=== PATIENT | female | born 1945 | race Caucasian/White ===

== ENCOUNTER → 2018-03-13 | Outpatient (CLI) | payer MEDICARE ==
[2018-03-13 15:38] LABS: POTASSIUM 3.1 mmol/L (3.5-5.1)
== END ==
LOC: M.LAB 15:08
PROVIDERS: Student in an Organized Health Care Education/Training Program
DX: Z01.812 Encounter for preprocedural laboratory examination (principal); E11.9 Type 2 diabetes mellitus without complications

== ENCOUNTER → 2018-11-01 | Outpatient (CLI) | payer MEDICARE | LOC: M.NUC 07:00 | DX: K31.84 Gastroparesis (principal); R10.9 Unspecified abdominal pain ==

== ENCOUNTER → 2018-11-13 | Day surgery (SDC) | payer MEDICARE ==
[~2018-11-13] MED LIST: ASPIR 8181 MG PO; COLACE100 MG PO; FLONASE 0.05%50 MCG NASAL; HYZAAR 100-12.1 EACH PO; NORCO 5-325 TA1 EACH PO; NOVOLIN N100 UNIT/1 SUBQ; POTASSIUM99 MG PO; TOPROL XL100 MG PO; VERAPAMIL ER100 MG PO; VITAMIN D32000 UNI1 PO
[2018-11-13 08:03] LABS: HEMATOCRIT 43.1 % (37.0-47.0); HEMOGLOBIN 14.4 gm/dL (12.0-15.0); MCH 27.2 pg (26.0-34.0); MCHC 33.5 g/dL (28.0-37.0); MCV 81.3 fL (80.0-100.0); MPV 8.8 fl. (7.2-11.1); RBC 5.3 mil/uL (4.20-5.00); RDW-CV 14.5 % (10.5-14.5); WBC 8.8 thou/uL (4.0-11.0)
[2018-11-13 08:14] LABS: CALCIUM 9.1 mg/dL (8.5-10.1); CREATININE 0.9 mg/dL (0.6-1.3); POTASSIUM 3.5 mmol/L (3.5-5.1)
--- NOTE | 2018-11-13 13:56 | EKG ---
[place] [address] ELECTROCARDIOGRAM REPORT Name: YOVANA CORTEZ Room: [facility]#: [id number] Admission: 11/13/18 Attend Phys: Veronica Askew DO Discharge: Date of : 47 Report #: [id number] THIS REPORT FOR: //name// [facility] Test Date: 2018-11-13 Test Time: 08:42:42 Pat Name: YOVANA CORTEZ Department: Room: Gender: F Nursery Worker: : 1945 Requested By: Veronica Askew Order Number: [id number] Ansley MD: Sae Almaguer Measurements Intervals [place] Rate: 57 P: 24 MT: 178 QRS: -24 QRSD: 79 T: 52 QT: 473 QTc: 461 Interpretive Statements Sinus bradycardia nonspecific t wave changes Inferior infarct, old No previous ECG available for comparison Electronically Signed On 11-13-2018 13:56:02 CDT by Sae Almaguer [email or web address] <ELECTRONICALLY SIGNED> By: Sae Almaguer MD, [facility] 11/13/18 1356 0842 0842 Sae Almaguer MD, FACC /EPI
--- NOTE | 2018-11-14 09:58 | OP ---
[address] [address] OPERATIVE REPORT Name: YOVANA CORTEZ Room: [facility].#: [id number] Admission: 11/13/18 Attend Phys: Veronica Askew DO Discharge: Date of : 47 Report #: [id number] THIS REPORT FOR: //name// CC: NIC Askew Physician staff DATE OF SERVICE: 11/13/2018 PREPROCEDURE DIAGNOSIS: Chronic intermittent left upper quadrant abdominal pain. POSTOPERATIVE DIAGNOSES: Chronic intermittent left upper quadrant abdominal pain with findings of adhesions in the right lower quadrant, right upper quadrant and just below the umbilicus. We also identified a retained foreign body in the form of a clip, which was stuck in the anterior abdominal wall in the right upper quadrant. There are also findings of a redundant transverse colon. SURGEON: Veronica Askew DO COSURGEON: Jake Ortiz, PGY-2 PROCEDURE PERFORMED: Diagnostic laparoscopy and lysis of adhesions, less than 30 minutes and removal of the foreign body. ANESTHESIA: General endotracheal and local. ESTIMATED BLOOD LOSS: 2. DRAINS: None. SPECIMENS: Clip which was not sent for pathology. COMPLICATIONS: None. DISPOSITION: PACU to home. CONDITION: Stable. HISTORY OF PRESENT ILLNESS: The patient is a very pleasant 73-year-old female who presented to my office with a complaint of chronic intermittent left upper quadrant abdominal pain. She had had a full workup with GI including EGD, colonoscopy, gastric emptying studies and CAT scans. Fortunately, none of these had any significant findings and she continued to have the pain. She has had multiple surgeries including lower abdominal laparotomy, a gallbladder and an [facility] [address] [place] [address] OPERATIVE REPORT Name: YOVANA CORTEZ SYBILHERIBERTO Room: [facility].#: [id number] Admission: 11/13/18 Attend Phys: Veronica Askew DO Discharge: Date of : 47 Report #: [id number] appendectomy and is concerned about the presence of possible adhesions. Physical exam was otherwise benign. She was then consented for diagnostic laparoscopy, possible lysis of adhesions, possible bowel resection. Risks discussed included bleeding, infection, pain, scar formation, hernia at the incision sites, need for further surgery and risks of general anesthesia. The patient understood these risks and elected to proceed. DESCRIPTION OF PROCEDURE: The patient was brought to the operating room. She was laid supine on the operating room table. SCDs were placed on bilateral lower extremities. Ancef was given in the perioperative period. General endotracheal anesthesia was induced by Anesthesia without difficulty. Abdomen was prepped and draped in standard sterile fashion. Timeout was performed to verify patient and procedure. A 10 mL of 0.5% Marcaine were injected in the supraumbilical area. Incision was made with an 11 blade. Cautery was used for hemostasis. S retractors were used to visualize the fascia. Fascia was grasped and elevated between 2 Kochers. Fascia was incised using cautery. Peritoneum was then tented between 2 Penny clamps and was incised using an 11 blade. Finger was gently introduced into the abdomen to assure that there were no layla-incisional adhesions, none were identified. Two stitches of 0 Vicryl were placed on the fascia. Momo trocar was introduced and secured with 0 Vicryl stitches. Abdomen was insufflated. Camera was introduced and a brief anterior abdominal exploration was undertaken with findings of multiple areas of adhesions including in the right lower quadrant, right upper quadrant and just below the umbilicus. In addition, there was a finding of a superredundant transverse colon. Two 5 mm trocars were then introduced, one in the left lower quadrant and one in the lower midline. We then proceeded with lysis of adhesions utilizing cautery. Care was taken to avoid any underlying structures. All of the adhesions in the right lower quadrant, right upper quadrant and at the umbilicus were all taken down. No signs of any hernia were identified. Once the adhesions in the right upper quadrant were taken down, we then identified what appeared to be a retained clip, most likely from previous cholecystectomy was identified. The clip was embedded in the anterior abdominal wall. It was gently grasped using a Jaquan and was able to be removed through our 5 mm trocar. A full diagnostic laparoscopy was then completed. Liver appeared to be healthy. The stomach did not appear to be overly distended. There were no masses identified. The colon was visualized from the cecum to the sigmoid and again was found to be without disease. Transverse colon was very redundant. Small bowel was run from the ligament of Treitz to the terminal ileum and was without adhesions, masses or lesions. Trocars were then removed under direct visualization. There was no bleeding noted from the peritoneum. Abdomen was then completely desufflated. Momo trocar was removed. Kochers were then placed on the fascia of our supraumbilical port. Previously placed 0 Vicryl stitch was removed and 2-0 Vicryl stitches in a xuieoa-xt-kixow fashion were placed with excellent approximation of the fascia. An additional 10 mL of 0.5% Marcaine were injected in the fascia. All wounds were then closed with 4-0 Monocryl. A total of 30 mL of 0.5% Marcaine were used to anesthetize the [address] [address] OPERATIVE REPORT Name: DANAYOVANA Room: [facility] MAnn Marie#: [id number] Admission: 11/13/18 Attend Phys: Veronica Askew DO Discharge: Date of : 47 Report #: [id number] wounds. Wounds were then cleansed and covered with Mastisol, Steri-Strips, 4 x 4's, and a Tegaderm. The patient was then allowed to awaken from anesthesia, was extubated and transported to the recovery room with no further difficulties. Counts were correct at the conclusion of the case. <ELECTRONICALLY SIGNED> By: Veronica Askew DO 11/14/18 0958 1046 1408Chprincess Askew DO /nt
== END | disposition home or self-care (01) ==
LOC: M.SUR 07:35
PROVIDERS: Surgery
DX: S30.851A Superficial foreign body of abdominal wall, initial encounter (principal); X58.XXXA Exposure to other specified factors, initial encounter; Y93.9 Activity, unspecified; Y92.89 Other specified places as the place of occurrence of the external cause; Y99.9 Unspecified external cause status; R10.12 Left upper quadrant pain; Z98.890 Other specified postprocedural states

== ENCOUNTER 2019-11-05 04:23 | Inpatient (IN) | payer MEDICARE ==
[~2019-11-05] VITALS: Ht 154.9 cm; Wt 74.8 kg
--- NOTE | ~2019-11-05 | CON ---
[address] [address] CONSULTATION Name: YOVANA CORTEZ Room: [address] IN M.R.#: [id number] Admission: 11/05/19 Attend Phys: Jazlyn Valladares Discharge: 11/07/19 Date of : 47 Report #: [id number] THIS REPORT FOR: //name// cc: Precious Campbell Carrie M. DO ~ THIS REPORT FOR: //name// CC: Precoius Monsivais DATE OF SERVICE: 11/05/2019 HISTORY OF PRESENT ILLNESS: This is a pleasant 74-year-old female with past medical history significant for hypertension, hyperlipidemia, type 2 diabetes, coronary artery disease, asthma, and COPD, who presents to the hospital with abdominal pain. The patient reports that she usually has one soft formed bowel movement per day, a few days back, she began having loose stools. Due to this, the patient took 1 Imodium on 2 consecutive days and since then she has had no bowel movement. This has led to significant abdominal pain. The patient reports the pain is located all over the abdomen. It is poorly localized. She also reports gradual loss of appetite over the last few weeks along with a 20-pound weight loss. The patient's pain was most severe during the admission, it has resolved since. The patient received a glycerin suppository yesterday and this has led to a large bowel movement with reduction in pain. She denies any hematochezia. The patient denies any hematemesis. PAST MEDICAL HISTORY: Hypertension, hyperlipidemia, type 2 diabetes, and NSTEMI with stent placed recently. PAST SURGICAL HISTORY: The patient has a history of wrist surgery in 1974, hernia repair in 2019, prior history of cholecystectomy, tonsillectomy and hysterectomy. SOCIAL HISTORY: The patient denies smoking, alcohol or recreational drug use. FAMILY HISTORY: There is no history of colon cancer or Scott related neoplasia. REVIEW OF SYSTEMS: A comprehensive 10-point review of systems is negative except for what is mentioned in the HPI. PHYSICAL EXAMINATION: VITAL SIGNS: Temperature 36.7, pulse rate 60, respirations 20, blood pressure 200/60, pulse ox 100% on room air. GENERAL: The patient is alert, awake, oriented x 3. HEENT: Pupils are equal, round, reactive to light and accommodation. Mucous membranes are moist. [place] [address] CONSULTATION Name: YOVANA CORTEZ Room: [address]#: [id number] Admission: 11/05/19 Attend Phys: Jazlyn Valladares Discharge: 11/07/19 Date of : 47 Report #: [id number] LUNGS: Clear to auscultation bilaterally. CARDIOVASCULAR: Rate and rhythm regular, S1, S2 present. ABDOMEN: Soft. There is no distention, guarding or rigidity. EXTREMITIES: Warm, well perfused. There is no edema. SKIN: Warm and dry. LABORATORY DATA: Hemoglobin 14.5, hematocrit 40.2, platelet count 293 and WBC count 13.1. Sodium 130, creatinine 1.1. IMAGING: Abdomen and pelvis CT performed and demonstrates surgical changes of cholecystectomy with moderate post-cholecystectomy bile duct enlargement, no evidence of high-grade bile duct obstruction, right kidney is smaller than left, stomach normal, small bowel loops normal, distal small bowel fluid filled and minimal ileus, no significant extension or obstruction. No significant wall thickening. Appendix is surgically absent. Moderate amount of stool present in the colon without fecal impaction or obstruction, sigmoid colon and descending are mildly tortuous, distal rectum, there is mild wall thickening with edema could be consistent with proctitis. Clinical correlation will be useful. ASSESSMENT AND PLAN: A pleasant 74-year-old female with history of hypertension, diabetes, hyperlipidemia, coronary artery disease is presenting for evaluation of abdominal pain, constipation and weight loss. I suspect her constipation is related to her use of Imodium. I would recommend giving her an enema today and placing her on MiraLax 17 grams p.o. daily. 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 The patient will need a CT angiography to define this further. We will treat the patient's constipation and if this does not get better, we will proceed with mesenteric angiography. Thank you for this consultation. By: 1849 [id number] Carrasco MD /nt
[~2019-11-05 04:23] MED LIST changes: +ASA81BEC PO; +ATROVENT HFA14 GM INH; +BRILINTA90 MG PO; +CARVEDILOL25 MG PO; +LOSARTAN-HCTZ1 EAC2 PO; +MEDROLDOSEPACK PO; +PROAIR HFA8.5 GM INH; +SPIRONOLACTONE25 MG PO; +SUPER THERAVIT1 EACH PO; +TESSALON PERLE100 MG PO; +VERAPAMIL E.R240 M1 PO; +VERAPAMIL ER120 MG PO; +ZETIA10 MG PO
[2019-11-05 04:32] VITALS: BP 207/60
[2019-11-05 04:46] LABS: URINE BILIRUBIN NEGATIVE (Negative); URINE BLOOD NEGATIVE (Negative); URINE CLARITY CLEAR; URINE COLOR YELLOW; URINE GLUCOSE-RANDOM 1+ (Negative); URINE KETONES NEGATIVE (Negative); URINE LEUKOCYTES-REFLEX NEGATIVE (Negative); URINE NITRITE-REFLEX NEGATIVE (Negative); URINE PROTEIN NEGATIVE (Negative); URINE SPECIFIC GRAVITY 1.015 (1.005-1.030); URINE UROBILINOGEN 0.2 E.U./dl (0.2-1.0)
[2019-11-05 04:55] LABS: ABSOLUTE BASOPHILS 0.1 thou/uL (0.0-0.2); ABSOLUTE EOSINOPHILS 0.2 thou/uL (0.0-0.7); ABSOLUTE MONOCYTES 1.3 thou/uL (0.0-1.2); ABSOLUTE NEUTROPHILS 10.4 thou/uL (1.6-8.1); BASOPHILS 0.8 %; EOSINOPHILS 1.8 %; HEMATOCRIT 40.2 % (37.0-47.0); HEMOGLOBIN 14.5 gm/dL (12.0-15.0); LYMPHOCYTES 7.9 %; MCH 29.9 pg (26.0-34.0); MCV 83.2 fL (80.0-100.0); MONOCYTES 9.9 %; NUCLEATED RBCS 0 /100WBC; PLATELET COUNT* 293 thou/uL (150-400); POLYS 79.6 %; RBC 4.84 mil/uL (4.20-5.00); WBC 13.1 thou/uL (4.0-11.0)
[2019-11-05 05:04] LABS: CALCIUM 8.8 mg/dL (8.5-10.1); CREATININE 1.1 mg/dL (0.6-1.3); POTASSIUM 3.5 mmol/L (3.5-5.1)
[2019-11-05 05:08] LABS: ALBUMIN 3.5 g/dL (3.4-5.0); TOTAL BILIRUBIN 0.9 mg/dL (<0.1-1.0); TOTAL PROTEIN 7.4 g/dL (6.4-8.2)
[2019-11-05 09:29] VITALS: BP 159/40
--- NOTE | 2019-11-05 10:34 | EKG ---
[place] [address] ELECTROCARDIOGRAM REPORT Name: YOVANA CORTEZ Room: [address] ADM IN .R.#: [id number] Admission: 11/05/19 Attend Phys: Shemar Monsivais Discharge: Date of : 47 Date of Service: 11/05/19 0435 Report #: [id number] THIS REPORT FOR: //name// [facility] ED Test Date: 2019-11-05 Test Time: 04:35:52 Pat Name: YOVANA CORTEZ Department: Room: [facility] Gender: F Qa Engineer: : 1945 Requested By: Laura Casarez Order Number: [id number] MD: Sae Almaguer Measurements Intervals [place] Rate: 60 P: 0 [place]: 62 QRS: -13 QRSD: 79 T: 97 QT: 376 QTc: 376 Interpretive Statements Sinus rhythm Abnormal R-wave progression, early transition Inferior infarct, old Compared to ECG 10/20/2019 02:59:05 First degree AV block no longer present Myocardial infarct finding still present Electronically Signed On 11-05-2019 10:32:53 OUTREACH MANAGER by Sae Almaguer [email or web address] <ELECTRONICALLY SIGNED> By: Sae Almaguer MD, FAC 11/05/19 1032 0435 0435 Sae Almaguer MD, FAC /EPI
[2019-11-05 11:46] VITALS: BP 162/47
[2019-11-05 16:00] VITALS: BP 158/42
[2019-11-05 20:00] VITALS: BP 139/47
[2019-11-06] VITALS (8 sets, daily range): BP systolic 117–170; BP diastolic 35–76
[2019-11-06 04:34] LABS: HEMATOCRIT 32.3 % (37.0-47.0); MCH 29.5 pg (26.0-34.0); MCHC 34.6 g/dL (28.0-37.0); MCV 85.2 fL (80.0-100.0); MPV 8.7 fl. (7.2-11.1); RBC 3.79 mil/uL (4.20-5.00); RDW-CV 13.1 % (10.5-14.5); WBC 22.6 thou/uL (4.0-11.0)
[2019-11-06 04:54] LABS: CALCIUM 7.6 mg/dL (8.5-10.1); CREATININE 1.1 mg/dL (0.6-1.3); MAGNESIUM 1.3 mg/dL (1.8-2.4); PHOSPHORUS* 3.2 mg/dL (2.5-4.9); POTASSIUM 3.1 mmol/L (3.5-5.1)
[2019-11-06 05:03] LABS: HEMOGLOBIN 11.2 gm/dL (12.0-15.0)
--- NOTE | 2019-11-06 09:39 | CON ---
[address] [address] CONSULTATION Name: YOVANA CORTEZ Room: [address] IN M.R.#: [id number] Admission: 11/05/19 Attend Phys: Jazlyn Valladares Discharge: Date of : 47 Report #: [id number] THIS REPORT FOR: //name// cc: Precious Campbell Carrie M. DO ~ THIS REPORT FOR: //name// CC: Precious Mcpherson MD [facility] Shemar Monsivais DATE OF SERVICE: 11/05/2019 CARDIOLOGY CONSULTATION HISTORY OF PRESENT ILLNESS: The patient is a 74-year-old single white female who I was asked to see in the hospital after she complained of abdominal discomfort. The patient has a long history of diabetes and hypertension. She actually presented here to [facility] on 10/16/2019 with elevated blood pressure and headache. She was seen by my partner, Dr. Isai Mcpherson. Her troponin was borderline elevated. However, she had no history of chest pain, increased shortness of breath, palpitations, syncope. Dr. Mcpherson performed a cardiac catheterization on 10/19/2019 from the right femoral artery. Results showed 90% narrowing in the mid LAD. Circumflex had a 40% stenosis. Right coronary was nondominant. Ventriculogram was normal. She was then given Angiomax and Dr. Mcpherson placed a single drug-eluting stent in the LAD. She tolerated the procedure well. She was started on Brilinta and was discharged. She actually just saw Dr. Mcpherson' nurse practitioner last week. She was taken off of Aldactone. Her blood pressure elevated and her hydrochlorothiazide was increased. Since her discharge, she has had no further chest pain, shortness of breath, palpitations, or syncope. She has been weak. She does not exercise on a regular basis. She did notice dry cough while taking Brilinta. She was doing well until last night. She felt constipated, bloated, had vomiting. She has had no appetite. She came to the Emergency Room and was admitted. PAST MEDICAL HISTORY: She has had previous cholecystectomy, cataract extraction, hysterectomy. MEDICATIONS: Include insulin, hydrochlorothiazide, losartan, carvedilol, and verapamil. She was recently given a prescription for Zetia, which she has not filled. She could not take statins in the past because of muscle aches. She developed a cough on lisinopril. FAMILY HISTORY: Her father had bypass surgery. SOCIAL HISTORY: She is , lives in [place], [place] [address] CONSULTATION Name: YOVANA CORTEZ SYBILHERIBERTO Room: [address] IN M.R.#: [id number] Admission: 11/05/19 Attend Phys: Jazlyn Valladares Discharge: Date of : 47 Report #: [id number] alcohol abuse. REVIEW OF SYSTEMS: She apparently had a TIA in the past affecting her speech. She has a carotid Doppler ordered. No history of liver disease. She has a history of asthma, uses inhaler. No kidney disease. No cancer. No psychiatric illness. No chronic skin condition. No arthritis. PHYSICAL EXAMINATION: GENERAL: Elderly female lying in bed. She appeared in no distress. VITAL SIGNS: She had a blood pressure of 160/60, pulse 60. She is afebrile. HEENT: She was anicteric, conjunctivae pink. Mucous membranes moist. NECK: Veins nondistended. Bilateral carotid bruits were heard. Neck was supple. CHEST: Clear to auscultation. CARDIOVASCULAR: Regular rate and rhythm. ABDOMEN: Soft. EXTREMITIES: Had no edema. Dorsalis pedis pulse 1+ bilaterally. SKIN: Cool and dry. NEUROLOGIC: Nonfocal. RADIOLOGICAL DATA: Her ECG shows a sinus rhythm, nonspecific T-wave changes. Her workup in the Emergency Room last night, she had a portable chest x-ray that showed no acute abnormality. CT scan of the abdomen done last night showed no bile duct obstruction. The rest of the exam showed minimal ileus. LABORATORY DATA: Sodium 130, creatinine 1.1. Troponin 0.08, it was actually 1.16 a month ago. Her white blood cell count 13.1, hemoglobin 14.5. IMPRESSION AND RECOMMENDATIONS: 1. Recent coronary stent. No recent angina. I would continue Brilinta and aspirin. 2. Hypertension. The patient is on a diuretic, ARB, calcium isabel and beta isabel. 3. Hyperlipidemia. The patient cannot tolerate STATIN drugs. 4. Ileus. The patient is currently n.p.o. 5. Carotid bruit. The patient is scheduled for carotid Doppler. <ELECTRONICALLY SIGNED> By: Sae Almaguer MD, FACC 11/06/19 0939 1123 0130Sae Almaguer MD, FACC /nt
[2019-11-07] VITALS: BP 121/40
[2019-11-07 04:21] VITALS: BP 145/39
[2019-11-07 05:13] LABS: ABSOLUTE BASOPHILS 0.1 thou/uL (0.0-0.2); ABSOLUTE EOSINOPHILS 0.3 thou/uL (0.0-0.7); ABSOLUTE LYMPHOCYTES 1.6 thou/uL (0.8-5.3); ABSOLUTE NEUTROPHILS 9.5 thou/uL (1.6-8.1); BASOPHILS 0.6 %; EOSINOPHILS 2.3 %; HEMATOCRIT 30.8 % (37.0-47.0); HEMOGLOBIN 10.7 gm/dL (12.0-15.0); LYMPHOCYTES 12.6 %; MCH 29.5 pg (26.0-34.0); MCHC 34.6 g/dL (28.0-37.0); MCV 85.3 fL (80.0-100.0); MONOCYTES 8.3 %; MPV 7.9 fl. (7.2-11.1); NUCLEATED RBCS 0 /100WBC; PLATELET COUNT* 202 thou/uL (150-400); POLYS 76.2 %; RBC 3.61 mil/uL (4.20-5.00); RDW-CV 13.4 % (10.5-14.5); WBC 12.5 thou/uL (4.0-11.0)
[2019-11-07 05:36] LABS: ALBUMIN 2.4 g/dL (3.4-5.0); CALCIUM 7.9 mg/dL (8.5-10.1); CREATININE 1.2 mg/dL (0.6-1.3); MAGNESIUM 1.9 mg/dL (1.8-2.4); PHOSPHORUS* 1.8 mg/dL (2.5-4.9); POTASSIUM 4.2 mmol/L (3.5-5.1); TOTAL BILIRUBIN 0.4 mg/dL (<0.1-1.0); TOTAL PROTEIN 5.8 g/dL (6.4-8.2)
[2019-11-07 07:30] VITALS: BP 150/52
[2019-11-07] MEDS ORDERED: AUGMENTIN 875-1 EACH PO (11:24)
[2019-11-07] MEDS ORDERED: PROTONIX40 M4 PO (11:24)
[2019-11-07 12:29] VITALS: BP 185/70
[2019-11-07 16:36] VITALS: BP 185/70
== END 2019-11-07 16:53 | disposition home or self-care (01) | DRG 871 ==
LOC: M.ERS 04:23 → M.TBA-ER 06:31 → M.2W 06:31
PROVIDERS: Personal Emergency Response Attendant; Surgery; ADMIT Internal Medicine
DX: A41.9 Sepsis, unspecified organism (principal); E43 Unspecified severe protein-calorie malnutrition; E87.1 Hypo-osmolality and hyponatremia; K56.609 Unspecified intestinal obstruction, unspecified as to partial versus complete obstruction; I77.4 Celiac artery compression syndrome; K62.89 Other specified diseases of anus and rectum; I25.10 Atherosclerotic heart disease of native coronary artery without angina pectoris; J44.9 Chronic obstructive pulmonary disease, unspecified; R65.10 Systemic inflammatory response syndrome (SIRS) of non-infectious origin without acute organ dysfunction; K44.9 Diaphragmatic hernia without obstruction or gangrene; G89.29 Other chronic pain; E87.6 Hypokalemia; E83.42 Hypomagnesemia; R01.1 Cardiac murmur, unspecified; G47.30 Sleep apnea, unspecified; I70.1 Atherosclerosis of renal artery; I65.23 Occlusion and stenosis of bilateral carotid arteries; E78.5 Hyperlipidemia, unspecified; I10 Essential (primary) hypertension; E11.9 Type 2 diabetes mellitus without complications; Z86.12 Personal history of poliomyelitis; Z68.31 Body mass index [BMI] 31.0-31.9, adult; Z95.5 Presence of coronary angioplasty implant and graft; Z90.49 Acquired absence of other specified parts of digestive tract; I25.2 Old myocardial infarction; Z90.710 Acquired absence of both cervix and uterus; Z79.82 Long term (current) use of aspirin; Z79.899 Other long term (current) drug therapy; Z88.5 Allergy status to narcotic agent; Z88.8 Allergy status to other drugs, medicaments and biological substances; Z91.048 Other nonmedicinal substance allergy status; Z91.09 Other allergy status, other than to drugs and biological substances; Z79.4 Long term (current) use of insulin; Z98.49 Cataract extraction status, unspecified eye; Z86.73 Personal history of transient ischemic attack (TIA), and cerebral infarction without residual deficits; Z87.11 Personal history of peptic ulcer disease

== ENCOUNTER 2019-12-03 09:40 | Inpatient (IN) | payer MEDICARE ==
[~2019-12-03] VITALS: Ht 154.9 cm; Wt 85.1 kg
--- NOTE | ~2019-12-03 | CON ---
[address] [place] [address] [address] CONSULTATION Name: YOVANA CORTEZ Room: [address] IN M.R.#: [id number] Admission: 12/03/19 Attend Phys: Freddie Silveira Discharge: Date of : 47 Report #: [id number] THIS REPORT FOR: //name// cc: Precious Campbell Carrie M. DO ~ THIS REPORT FOR: //name// CC: Precious [place] DATE OF SERVICE: 12/05/2019 VASCULAR SURGERY CONSULTATION REQUESTING PHYSICIAN: Freddie [place] MD. REASON FOR CONSULTATION: Peripheral arterial disease. HISTORY OF PRESENT ILLNESS: The patient is well known to us. She is a very pleasant 74-year-old white female. She is a severe vasculopath. We had been seeing her and we were planning on bilateral carotid endarterectomies as well as bilateral lower extremity revascularizations. Unfortunately, she had worsening of her symptoms in the left leg with acute necrosis of her left great toe. She ended up in the ER at [facility] and the vascular surgeons there took her for bilateral common femoral endarterectomies with iliac intervention as well. She was returned to [facility] for rehabilitation. She was brought over to the ER complaining of left foot pain. Both legs appear to be viable at this time. She has some swelling of her left leg. I suspect she likely has reperfusion syndrome. REVIEW OF SYSTEMS: A 12-point review of systems was reviewed and negative as per HPI. PAST MEDICAL HISTORY: Significant for AFib with RVR, bronchitis, diabetes, hyperlipidemia, hypertension. ALLERGIES: Include ADHESIVE TAPE, ADORE INHIBITORS, KEFLEX, CODEINE, ERYTHROMYCIN, LISINOPRIL AND MORPHINE. SURGICAL HISTORY: The patient underwent bilateral femoral endarterectomies with iliac interventions by Dr. Diehl ____ and Dr. Shawn Zayas at [facility] 1 week ago. MEDICATIONS: Include Brilinta, aspirin, metoprolol, losartan, insulin, Atrovent, ProAir, verapamil, benzonatate, [place] [address] CONSULTATION Name: YOVANA CORTEZ Room: [address]#: [id number] Admission: 12/03/19 Attend Phys: Freddie Silveira Discharge: Date of : 47 Report #: [id number] SOCIAL HISTORY: The patient denies drug, alcohol or tobacco use. PHYSICAL EXAMINATION: GENERAL: The patient is in no acute distress. She is alert and oriented. VITAL SIGNS: Afebrile. Vital signs stable. HEENT: Normocephalic, atraumatic. NECK: Supple. HEART: Irregularly irregular. LUNGS: Equal. ABDOMEN: Soft, nontender, nondistended. EXTREMITIES: Bilateral groin incisions are well approximated. No drainage, no signs or symptoms of infection, no erythema. Bilateral legs are pink and warm. There is some swelling of her left leg. I cannot palpate pulses on either side, but they are clearly viable. NEUROLOGIC: Grossly intact. ASSESSMENT: Status post revascularization of bilateral lower extremities by outside surgeon. PLAN: 1. We will check arterial duplex with ABIs to assess the revascularization of her bilateral legs. 2. The patient still needs carotid endarterectomies. We will plan for these once the coronavirus pandemic has run its course, likely 6-8 weeks, sooner should the patient become symptomatic from her carotids. Thank you very much for involving me in the care of this very pleasant patient. Please feel free to call me with any questions or concerns about assessment and plan. By: 1723 [id number] Vaughn MD /nt
[~2019-12-03 09:40] MED LIST changes: +AUGMENTIN 875-1 EACH PO; +PROTONIX40 M4 PO
[2019-12-03 09:42] VITALS: BP 173/80
[2019-12-03] MEDS ORDERED: METOPROLOL SUC100 MG PO (09:49)
[2019-12-03] MEDS ORDERED: TOPROL XL50 MG PO (09:49)
[2019-12-03 10:23] LABS: ABSOLUTE BASOPHILS 0.1 thou/uL (0.0-0.2); ABSOLUTE EOSINOPHILS 0.3 thou/uL (0.0-0.7); ABSOLUTE LYMPHOCYTES 1.1 thou/uL (0.8-5.3); ABSOLUTE MONOCYTES 1.6 thou/uL (0.0-1.2); ABSOLUTE NEUTROPHILS 10.7 thou/uL (1.6-8.1); BASOPHILS 0.8 %; EOSINOPHILS 2.5 %; HEMATOCRIT 32.3 % (37.0-47.0); HEMOGLOBIN 10.9 gm/dL (12.0-15.0); LYMPHOCYTES 7.9 %; MCH 28.9 pg (26.0-34.0); MCHC 33.8 g/dL (28.0-37.0); MCV 85.6 fL (80.0-100.0); MONOCYTES 11.7 %; MPV 7.8 fl. (7.2-11.1); NUCLEATED RBCS 0 /100WBC; PLATELET COUNT* 522 thou/uL (150-400); POLYS 77.1 %; RBC 3.77 mil/uL (4.20-5.00); RDW-CV 13.9 % (10.5-14.5); WBC 13.8 thou/uL (4.0-11.0)
[2019-12-03 10:30] LABS: INR 1.1; PROTIME 10.9 Seconds (9.20-11.50)
[2019-12-03 10:31] LABS: POTASSIUM 3.4 mmol/L (3.5-5.1)
[2019-12-03 10:41] LABS: ALBUMIN 2.3 g/dL (3.4-5.0); MAGNESIUM 1.9 mg/dL (1.8-2.4); TOTAL BILIRUBIN 1.1 mg/dL (<0.1-1.0); TOTAL PROTEIN 6.3 g/dL (6.4-8.2)
--- NOTE | 2019-12-03 11:45 | NUR ---
CARDIZEM DRIP 10ML/HR
[2019-12-03 13:00] VITALS: BP 131/62
[2019-12-03 13:07] VITALS: BP 149/64
[2019-12-03] MEDS ORDERED: VERAPAMIL ER120 MG PO (14:14)
[2019-12-03] MEDS ORDERED: TESSALON PERLE100 M1 PO (14:37)
[2019-12-03] MEDS ORDERED: NON-ASPIRIN325 MG PO (14:38)
[2019-12-03] MEDS ORDERED: PROTONIX40 M4 PO (14:39)
--- NOTE | 2019-12-03 15:17 | EKG ---
[place] [address] ELECTROCARDIOGRAM REPORT Name: DANAYOVANA Room: [address] ADM IN M.R.#: [id number] Admission: 12/03/19 Attend Phys: Freddie rea Sa Discharge: Date of : 47 Date of Service: 12/03/19 0947 Report #: [id number] THIS REPORT FOR: //name// [facility] ED Test Date: 2019-12-03 Test Time: 09:47:45 Pat Name: YOVANA CORTEZ Department: Room: [facility] Gender: F Communications Agent: CCD : 1945 Requested By: Harsh Foley Order Number: [id number] MD: Sae Almaguer Measurements Intervals [place] Rate: 127 P: [place]: QRS: -7 QRSD: 62 T: 31 QT: 388 QTc: 565 Interpretive Statements Atrial fibrillation Borderline T abnormalities, anterior leads Prolonged QT interval Compared to ECG 11/05/2019 04:35:52 Prolonged QT interval now present Sinus rhythm no longer present Electronically Signed On 12-03-2019 15:16:19 CDT by Sae Almaguer [email or web address] <ELECTRONICALLY SIGNED> By: Sae Almaguer MD, [facility] 12/03/19 1516 0947 0947 Sae Almaguer MD, [facility] /EPI
--- NOTE | 2019-12-03 16:39 | NUR ---
assumed pt care report received from nurse pt is aox4. on ra. tracing afib on surveillance monitor. heart rate between 110 and 120. on cardizem drip at 10 cc per hour going through left forearm iv access. pt denies pain. urine sample sent to lab. vss stable. see chart. admission assessment and hx performed at bedside. medication list updated and this was communicated to the hospitalist. cardiology saw pt in room and some changes have been made in the patient's medication. see emar. call light at reach. iv antibiotic administered as ordered. will continue to monitor pt
[2019-12-03 16:46] LABS: URINE BILIRUBIN NEGATIVE (Negative); URINE BLOOD 1+ (Negative); URINE CLARITY CLEAR; URINE COLOR YELLOW; URINE GLUCOSE-RANDOM NEGATIVE (Negative); URINE KETONES 1+ (Negative); URINE LEUKOCYTES-REFLEX NEGATIVE (Negative); URINE NITRITE-REFLEX NEGATIVE (Negative); URINE PROTEIN TRACE (Negative); URINE UROBILINOGEN 0.2 E.U./dl (0.2-1.0)
[2019-12-03 16:58] LABS: BACTERIA-REFLEX None Seen /HPF (None Seen); CASTS None Seen /LPF (None Seen); CRYSTALS None Seen /LPF (None Seen); SQUAMOUS 4-10 Moderate /LPF (0-3); URINE RBC 0-2 Rare /HPF (0-2); URINE WBC-REFLEX None Seen /HPF (0-5)
[2019-12-03 17:05] VITALS: BP 137/68
--- NOTE | 2019-12-03 18:27 | NUR ---
HEART RATE DOWN INTHE 90s. REMAINED AFIB ON THE SEARCHLIGHT OPERATOR.
[2019-12-03 20:00] VITALS: BP 150/61
[2019-12-04 04:07] VITALS: BP 177/69
[2019-12-04 04:08] LABS: HEMATOCRIT 32.1 % (37.0-47.0); HEMOGLOBIN 10.8 gm/dL (12.0-15.0); MCHC 33.6 g/dL (28.0-37.0); MCV 86.3 fL (80.0-100.0); MPV 7.9 fl. (7.2-11.1); RBC 3.71 mil/uL (4.20-5.00); RDW-CV 14.2 % (10.5-14.5); WBC 12.7 thou/uL (4.0-11.0)
[2019-12-04 04:42] LABS: ALBUMIN 2.4 g/dL (3.4-5.0); CALCIUM 8.7 mg/dL (8.5-10.1); CREATININE 1.1 mg/dL (0.6-1.3); MAGNESIUM 1.9 mg/dL (1.8-2.4); POTASSIUM 3.7 mmol/L (3.5-5.1); TOTAL BILIRUBIN 1.1 mg/dL (<0.1-1.0); TOTAL PROTEIN 6.3 g/dL (6.4-8.2)
--- NOTE | 2019-12-04 06:50 | NUR ---
ASSUMED PT CARE AT 1930. NURSING ASSESSMENT COMPLETED AT START OF SHIFT. PT VOICED NO CONCERNS. 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 CONTINUES ON CARDIZEM DRIP. HOURLY ROUNDING COMPLETED. CALL LIGHT WITHIN REACH.
[2019-12-04 08:30] VITALS: BP 151/60
--- NOTE | 2019-12-04 10:15 | EKG ---
[place] [address] ELECTROCARDIOGRAM REPORT Name: YOVANA CORTEZ Room: [address] ADM IN M.R.#: [id number] Admission: 12/03/19 Attend Phys: Freddie rea Sa Discharge: Date of : 47 Date of Service: 12/04/19 0812 Report #: [id number] THIS REPORT FOR: //name// [facility] Test Date: 2019-12-04 Test Time: 08:12:30 Pat Name: YOVANA CORTEZ Department: Room: [address] Gender: F Biogeographer: : 1945 Requested By: Sae Almaguer Order Number: [id number] Reading MD: Isai Mcpherson Measurements Intervals [place] Rate: 91 P: [place]: QRS: -7 QRSD: 66 T: -28 QT: 475 QTc: 585 Interpretive Statements Atrial fibrillation Inferior infarct, old Prolonged QT interval Compared to ECG 12/03/2019 09:47:45 Myocardial infarct finding now present Electronically Signed On 12-04-2019 10:13:42 CDT by Isai Mcpherson [email or web address] <ELECTRONICALLY SIGNED> By: Isai Mcpherson MD, [facility] 12/04/19 1013 1 1 Isai Mcpherson MD, [facility] /EPI
--- NOTE | 2019-12-04 11:11 | CON ---
[address] [address] CONSULTATION Name: YOVANA CORTEZ Room: [address] IN M.R.#: [id number] Admission: 12/03/19 Attend Phys: Freddie Silveira Discharge: Date of : 47 Report #: [id number] THIS REPORT FOR: //name// cc: Precious Campbell Carrie M. DO ~ THIS REPORT FOR: //name// CC: Precious Miller DATE OF SERVICE: 12/03/2019 CARDIOLOGY CONSULTATION HISTORY OF PRESENT ILLNESS: The patient is a 74-year-old single white female who came to the Emergency Room with palpitations. The patient has an extensive past medical history. She was admitted here to [facility] in October with elevated blood pressure. She had an elevated troponin of 0.2. She was seen by Dr. Mcpherson. She denied any shortness of breath or chest pain. She did complain of headache. She underwent a stress test that showed anterior ischemia. Dr. Mcpherson performed cardiac catheterization on 10/19 that showed a 90% narrowing of the mid LAD, circumflex had 40% stenosis, the right coronary had 80% distal stenosis, ejection fraction 60%. He then placed a stent in the LAD. She returned to see my nurse practitioner a month ago. Because of elevated blood pressure, she was found to have evidence of renal artery stenosis. Last week, she was taken by Vascular Surgery to their office in [place] and had stents placed in both renal arteries. She was found to have an occluded SMA and underwent stenting there as well. Apparently, she had a small perforation and had to be observed for several days. She eventually was sent home 3 days ago. Today, she felt lightheaded and her heart was beating fast. She had been somewhat short of breath. Denied chest pain. Her daughter brought her to the Emergency Room today and she is found to be in atrial fibrillation. PAST MEDICAL HISTORY: Otherwise is significant for previous tonsillectomy, hysterectomy, cholecystectomy, laparoscopy requiring lysis of adhesions. She has a history of sleep apnea, uses CPAP. She has a history of hypertension and hyperlipidemia. CURRENT MEDICATIONS: Include verapamil, Brilinta, Protonix, aspirin, insulin, metoprolol. ALLERGIES: SHE HAS A PREVIOUS INTOLERANCE TO KEFLEX, CODEINE, MORPHINE, ADORE INHIBITORS, TRICOR, MUSCLE PAIN WITH STATINS. FAMILY HISTORY: [place] [address] CONSULTATION Name: YOVANA CORTEZ SYBILHERIBERTO Room: [address] IN [facility]#: [id number] Admission: 12/03/19 Attend Phys: Freddie Silveira Discharge: Date of : 47 Report #: [id number] SOCIAL HISTORY: She is , lives in [place], [place]. No smoking or alcohol abuse. REVIEW OF SYSTEMS: No history of stroke. She had asthma. 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 No liver disease, no kidney disease, no cancer, no psychiatric illness. PHYSICAL EXAMINATION: GENERAL: Revealed an elderly frail appearing female, who appeared in no distress. VITAL SIGNS: She had a blood pressure of 140/80, pulse is 100, and she is afebrile. HEENT: She was anicteric. Conjunctivae are pink. Mucous membranes moist. NECK: Veins nondistended. No carotid bruits. CHEST: Clear to auscultation. CARDIOVASCULAR: Irregular rhythm. ABDOMEN: Soft. EXTREMITIES: Had no edema. Dorsalis pedis pulse cannot be palpated. SKIN: Cool and dry. NEUROLOGIC: Nonfocal. RADIOLOGICAL DATA: Her ECG showed atrial fibrillation, nonspecific ST and T-wave change. LABORATORY DATA: Sodium 139, potassium 3.4, creatinine 1.0, albumin 2.3. Troponin 0.06. BNP 4474. Her white blood cell count 13.8, hematocrit 32.3. IMPRESSION AND RECOMMENDATIONS: 1. Atrial fibrillation. I would continue verapamil for rate control and increase her dose of metoprolol. I would consider anticoagulation with Eliquis. If she fails to convert, I would recommend cardioversion. 2. Hypertension. The patient is on calcium isabel and beta isabel. She cannot tolerate ADORE inhibitors. 3. Previous coronary stent. The patient on Brilinta. 4. Hyperlipidemia. The patient cannot tolerate statin drugs. 5. History of asthma. 6. Recent bilateral renal artery stenting. 7. Mesenteric vascular disease. Recent stent in her mesenteric artery. 8. Sleep apnea. The patient uses CPAP. <ELECTRONICALLY SIGNED> By: Sae Almaguer MD, FACC 12/04/19 1111 1428 1451Dcherie Almaguer MD, FACC /nt
--- NOTE | 2019-12-04 11:57 | NUR ---
Cardiac Rehab Complete stroke education given including: signs and symptoms of stroke an when to call 911, personal risk factors and how to reduce risk, medications, and lipid profile.
--- NOTE | 2019-12-04 12:18 | 2DMMODE ---
[place] [address] 2 D/M-MODE ECHOCARDIOGRAM Name: [facility] Room: [address] IN .R.#: [id number] Admission: 12/03/19 Attend Phys: Freddie rea Sa Discharge: Date of : 47 Date of Service: 12/04/19 1217 Report #: [id number] THIS REPORT FOR: cc: Precious Campbell, Isai Conklin MD [facility] ~ APPROVED REPORT Study performed: 12/04/2019 11:27:22 EXAM: Limited 2D and color flow Echocardiogram Patient Location: In-Patient Room #: [facility] Status: routine BSA: 1.76 HR: 103 bpm BP: 151/60 mmHg Rhythm: Atrial Fibrillation Other Information Study Quality: Good Indications Atrial Fibrillation Left Ventricle The left ventricle is normal size. There is normal LV segmental wall motion. There is normal left ventricular wall thickness. The left ventricular systolic function is normal. The left ventricular ejection fraction is within the normal range. LVEF is 60-65%. This study is not technically sufficient to allow evaluation of the LV diastolic function due to atrial fibrillation. Right Ventricle The right ventricle is normal size. The right ventricular systolic function is normal. Atria The left atrium size is normal. The right atrium size is normal. Aortic Valve Mild aortic valve sclerosis[place] [address] 2 D/M-MODE ECHOCARDIOGRAM Name: YOVANA CORTEZ Room: [address] IN M.R.#: [id number] Admission: 12/03/19 Attend Phys: Freddie rea Sa Discharge: Date of : 47 Date of Service: 12/04/19 1217 Report #: [id number] The mitral valve is normal in structure. Tricuspid Valve The tricuspid valve is normal in structure. Trace tricuspid regurgitation. Mild to moderate tricuspid regurgitation. Pulmonic Valve The pulmonary valve is normal in structure. Great Vessels The aortic root is normal in size. IVC is normal in size and collapses >50% with inspiration. Pericardium There is no pericardial effusion. <Conclusion> The left ventricle is normal size. There is normal left ventricular wall thickness. The left ventricular systolic function is normal. The left ventricular ejection fraction is within the normal range. LVEF is 60-65%. This study is not technically sufficient to allow evaluation of the LV diastolic function due to atrial fibrillation. The right ventricle is normal size. The left atrium size is normal. The right atrium size is normal. Mild aortic valve sclerosis. The mitral valve is normal in structure. The tricuspid valve is normal in structure. IVC is normal in size and collapses >50% with inspiration. There is no pericardial effusion. There is normal LV segmental wall motion. <ELECTRONICALLY SIGNED> By: Isai Mcpherson MD, FACC 12/04/191216 16 16 Isai Mcpherson MD, FACC /INF
[2019-12-04 12:41] VITALS: BP 87/51
--- NOTE | 2019-12-04 13:55 | NUR ---
Pt is A&O. Resides at home alone. Independent. Pt has cpap, no other DME. No hx of HH or SNF. Goal is home at ca, following.
[2019-12-04 16:00] VITALS: BP 136/50
--- NOTE | 2019-12-04 18:57 | NUR ---
I ASSUMED CARE OF THE PATIENT AT 0700. BED IS IN THE LOW LOCKED POSITION AND CALL LIGHT IS IN REACH. HOURLY ROUNDING IS COMPLETED AND PATIENT NEEDS ARE MET. PAIN IS MANAGED WITH PRN MEDS. SHE IS UP AD ALLEN. CARDIZEM DRIP IS COMPLETED AND GLUCOSE IS MANAGED WITH INSULIN. ECHO WAS COMPLETE AND PATIENT CONVERTED ON HER OWN AROUND 1656. SHE IS SCHEDULED TO BE NPO AT MIDNIGHT AND BE CARDIOVERTED TOMORROW. WILL CONTINUE TO MONITOR.
[2019-12-04 20:00] VITALS: BP 173/56
[2019-12-05] VITALS (8 sets, daily range): BP systolic 142–174; BP diastolic 36–85
[2019-12-05 03:50] LABS: HEMATOCRIT 26.5 % (37.0-47.0); HEMOGLOBIN 8.9 gm/dL (12.0-15.0)
--- NOTE | 2019-12-05 05:34 | NUR ---
ASSUMED PT CARE AT APPROX 1930. PT IS AWAKE AND ORIENTED X4. DRIER FEEDER IS TRACING SR. PT DENIES PAIN/DISCOMFORT. ASSESSMENT DPNE AND CHARTED. NO ACUTE CHANGES OVERNIGHT. PT IS NPO FOR POSSIBLE CARDIOVERSION IN IN AM. CALL LIGHT WITHIN REACH. HOURLY ROUNDING DONE FOR PT SAFETY.
--- NOTE | 2019-12-05 13:36 | NUR ---
PER RN, PT.MAY BE READY FOR DISCHARGE TOMORROW PER DR.DE PANCHO STEVENS.
--- NOTE | 2019-12-05 17:04 | EKG ---
[place] [address] ELECTROCARDIOGRAM REPORT Name: YOVANA CORTEZ Room: [address] ADM IN M.R.#: [id number] Admission: 12/03/19 Attend Phys: Freddie rea Sa Discharge: Date of : 47 Date of Service: 12/05/19 1658 Report #: [id number] THIS REPORT FOR: //name// [facility] Test Date: 2019-12-05 Test Time: 16:58:57 Pat Name: YOVANA CORTEZ Department: Room: [address] Gender: F Medical Underwriter: KREED7 : 1945 Requested By: Freddie Miller Order Number: [id number] Ansley MD: Kenneth Martinez Measurements Intervals [place] Rate: 101 P: [place]: QRS: -6 QRSD: 64 T: 39 QT: 437 QTc: 567 Interpretive Statements Atrial fibrillation Inferior infarct, old Prolonged QT interval Compared to ECG 12/04/2019 08:12:30 No significant changes Electronically Signed On 12-05-2019 17:03:06 CDT by Kenneth Martinez [email or web address] <ELECTRONICALLY SIGNED> By: Kenneth Martinez MD, FAC 12/05/19 1703 1658 1658 Kenneth Martinez MD, [facility] /EPI
--- NOTE | 2019-12-05 17:11 | NUR ---
PATIENT IS SINUS RYTHM THIS SHIFT, PATIENT THEN CONVERTED BACK TO AFIBB THIS EVENING. CALL PLACED TO DR. PALOMINO. PATIENT UP TO CHAIR AND SHOWERED THIS SHIFT. IV ABX INFUSED ORDERED. PATIENT METOPROLOL CHANGED FROM TID TO BID TODAY PER DR. PALOMINO, LOSARTAN ADDED AT 1200 FOR ELEVATED BP. NO COMPLAINTS OF PAIN. PATIENT WAS HOPING TO GO HOME TOMORROW.
[2019-12-06 03:57] LABS: HEMATOCRIT 28.4 % (37.0-47.0); HEMOGLOBIN 9.7 gm/dL (12.0-15.0); MCHC 34.1 g/dL (28.0-37.0); MCV 85.1 fL (80.0-100.0); MPV 7.9 fl. (7.2-11.1); RBC 3.33 mil/uL (4.20-5.00); RDW-CV 14.2 % (10.5-14.5); WBC 11.4 thou/uL (4.0-11.0)
[2019-12-06 04:00] VITALS: BP 176/56
[2019-12-06 04:20] LABS: ALBUMIN 2.4 g/dL (3.4-5.0); CALCIUM 8.1 mg/dL (8.5-10.1); MAGNESIUM 1.8 mg/dL (1.8-2.4); PHOSPHORUS* 3.2 mg/dL (2.5-4.9); POTASSIUM 3.5 mmol/L (3.5-5.1)
--- NOTE | 2019-12-06 04:28 | NUR ---
ASSUMED PT CARE AT APPROX 1930. PT IS AWAKE AND ORIENTED X4. IRON BENDER IS TRACING AFIB-MORE RATE CONTROLLED AFTER DIGOXIN ADMINISTRATION. ASSESSMENT DONE AND CHARTED. PT IS NPO AFTER MIDNIGHT FOR POSSIBLE CARDIOVERSION IN AM. CALL LIGHT WITHIN REACH. HOURLY ROUNDING DONE FOR PT SAFETY. FALL PRECAUTIONS IN PLACE.
[2019-12-06 08:00] VITALS: BP 193/62
[2019-12-06 11:30] VITALS: BP 177/60
[2019-12-06 15:49] VITALS: BP 165/38
[2019-12-06 20:00] VITALS: BP 165/50
[2019-12-07] VITALS: BP 169/48
[2019-12-07 03:57] LABS: HEMATOCRIT 27.1 % (37.0-47.0); MCH 28.7 pg (26.0-34.0); MCHC 33.1 g/dL (28.0-37.0); MCV 86.6 fL (80.0-100.0); MPV 8.1 fl. (7.2-11.1); RBC 3.13 mil/uL (4.20-5.00); RDW-CV 14.2 % (10.5-14.5); WBC 12.6 thou/uL (4.0-11.0)
[2019-12-07 04:00] VITALS: BP 180/56
[2019-12-07 04:11] LABS: ALBUMIN 2.3 g/dL (3.4-5.0); CALCIUM 7.8 mg/dL (8.5-10.1); CREATININE 1.2 mg/dL (0.6-1.3); MAGNESIUM 1.8 mg/dL (1.8-2.4); PHOSPHORUS* 3.2 mg/dL (2.5-4.9); POTASSIUM 3.5 mmol/L (3.5-5.1)
--- NOTE | 2019-12-07 05:29 | NUR ---
ASSUMED PT CARE AT APPROX 1930. PT IS AWAKE AND ORIENTED X4. FLIGHT SERVICE AGENT IN PLACE TRACING AFIB-PT CONVERTED TO SINUS BRADYCARDIA AT APPROX 2109. PT REMAINED SB THROUGH THE NIGHT. CALL LIGHT WITHIN REACH. HOURLY ROUNDING DONE FOR PT SAFETY.
[2019-12-07 06:43] VITALS: BP 167/40
[2019-12-07 08:00] VITALS: BP 181/46
[2019-12-07 10:34] VITALS: BP 173/47
[2019-12-07] MEDS ORDERED: CARDIZEM CD120 MG PO (12:27)
[2019-12-07] MEDS ORDERED: ELIQUIS5 MG PO ×2 (12:27→14:18)
[2019-12-07] MEDS ORDERED: LEVAQUIN 750 M750 MG PO (12:28)
[2019-12-07] MEDS ORDERED: LOPRESSOR50 MG PO (14:14)
[2019-12-07] MEDS ORDERED: FLECAINIDE ACET50 M2 PO (14:17)
[2019-12-07 14:31] VITALS: BP 173/47
--- NOTE | 2019-12-07 14:45 | NUR ---
ASSUMED PT CARE AT 0700, PT A&O X4, VSS, SERVICE CENTER MANAGER CONT TO TRACE SINUS RHYTHM, UP AD ALLEN. PT DISCHARGED AT APPROX 1435 WITH DAUGHTER. EDUCATED ON ALL DISCHARGE INSTRUCTIONS INCLUDING MEDICATIONS AND FOLLOW UP APPTS. IV AND SERVICE CENTER MANAGER REMOVED, HOURLY ROUNDING COMPLETD.
== END 2019-12-07 14:45 | disposition home or self-care (01) | DRG 871 ==
LOC: M.ERS 09:40 → M.TBA-ER 10:55 → M.2W 10:55
PROVIDERS: Emergency Medicine Emergency Medical Services; ADMIT Family Medicine
PROC: 5A09357 Assistance with Respiratory Ventilation, Less than 24 Consecutive Hours, Continuous Positive Airway Pressure (ICD-10-PCS; principal; 2019-12-03)
PROC: 5A09357 Assistance with Respiratory Ventilation, Less than 24 Consecutive Hours, Continuous Positive Airway Pressure (ICD-10-PCS; 2019-12-04)
DX: A41.9 Sepsis, unspecified organism (principal); J18.1 Lobar pneumonia, unspecified organism; J44.0 Chronic obstructive pulmonary disease with (acute) lower respiratory infection; I48.20 Chronic atrial fibrillation, unspecified; I65.23 Occlusion and stenosis of bilateral carotid arteries; D50.9 Iron deficiency anemia, unspecified; G47.33 Obstructive sleep apnea (adult) (pediatric); E78.5 Hyperlipidemia, unspecified; I10 Essential (primary) hypertension; E11.9 Type 2 diabetes mellitus without complications; K59.00 Constipation, unspecified; I25.10 Atherosclerotic heart disease of native coronary artery without angina pectoris; D47.3 Essential (hemorrhagic) thrombocythemia; Z95.5 Presence of coronary angioplasty implant and graft; Z79.82 Long term (current) use of aspirin; Z90.710 Acquired absence of both cervix and uterus; Z90.49 Acquired absence of other specified parts of digestive tract; I25.2 Old myocardial infarction; Z98.42 Cataract extraction status, left eye; Z98.41 Cataract extraction status, right eye; Z79.899 Other long term (current) drug therapy; Z88.5 Allergy status to narcotic agent; Z88.8 Allergy status to other drugs, medicaments and biological substances; Z91.048 Other nonmedicinal substance allergy status; Z91.09 Other allergy status, other than to drugs and biological substances; Z79.4 Long term (current) use of insulin; Z82.49 Family history of ischemic heart disease and other diseases of the circulatory system; Z99.81 Dependence on supplemental oxygen; Z86.12 Personal history of poliomyelitis

== ENCOUNTER 2019-12-30 13:27 | Inpatient (IN) | payer MEDICARE ==
[~2019-12-30] VITALS: Ht 157.5 cm; Wt 83.9 kg
[~2019-12-30 13:27] MED LIST changes: +CARDIZEM CD120 MG PO; +ELIQUIS5 MG PO; +FLECAINIDE ACET50 M2 PO; +LEVAQUIN 750 M750 MG PO; +LOPRESSOR50 MG PO; +METOPROLOL SUC100 MG PO; +NON-ASPIRIN325 MG PO; +TESSALON PERLE100 M1 PO; +TOPROL XL50 MG PO
[2019-12-30 13:30] VITALS: BP 122/74
[2019-12-30] MEDS ORDERED: LASIX 40 MG TAB40 MG PO (13:43)
[2019-12-30] MEDS ORDERED: HYDRALAZINE 5050 MG PO (13:44)
[2019-12-30] MEDS ORDERED: SPIRONOLACTONE25 MG PO (13:46)
[2019-12-30 13:47] LABS: HEMATOCRIT 33.2 % (37.0-47.0); HEMOGLOBIN 10.9 gm/dL (12.0-15.0); MCH 27.8 pg (26.0-34.0); MCHC 32.9 g/dL (28.0-37.0); MCV 84.6 fL (80.0-100.0); MPV 8.4 fl. (7.2-11.1); NUCLEATED RBCS 0 /100WBC; PLATELET COUNT* 465 thou/uL (150-400); RBC 3.92 mil/uL (4.20-5.00); RDW-CV 15.4 % (10.5-14.5); WBC 14.5 thou/uL (4.0-11.0)
[2019-12-30] MEDS ORDERED: K-DUR10 MEQ PO (13:48)
[2019-12-30] MEDS ORDERED: LEVAQUIN 500 M500 M3 PO (13:53)
[2019-12-30 13:54] LABS: ANION GAP 9 mmol/L (7-16); APTT 39.2 Seconds (25.0-31.3); BUN 43 mg/dL (7-18); CALCIUM 8.9 mg/dL (8.5-10.1); CHLORIDE 95 mmol/L (98-107); CO2 32 mmol/L (21-32); CREATININE 1.9 mg/dL (0.6-1.3); GLUCOSE 222 mg/dL (70-99); INR 1.3; POTASSIUM 4.1 mmol/L (3.5-5.1); PROTIME 13.4 Seconds (9.20-11.50); SODIUM 136 mmol/L (136-145)
[2019-12-30] MEDS ORDERED: TYLENOL EXTRA500 MG PO (14:01)
[2019-12-30 14:07] LABS: ALBUMIN 2.8 g/dL (3.4-5.0); ALKALINE PHOSPHATASE 58 U/L (46-116); CK-MB MASS < 0.5 ng/mL (<0.5-3.6); LIPASE 90 U/L (73-393); MAGNESIUM 1.9 mg/dL (1.8-2.4); NT-PRO BRAIN NAT PEPTIDE 2224 pg/mL (<300); SGOT 14 U/L (15-37); SGPT 14 U/L (30-65); TOTAL BILIRUBIN 0.5 mg/dL (<0.1-1.0); TOTAL PROTEIN 7.1 g/dL (6.4-8.2)
[2019-12-30 14:47] LABS: ABSOLUTE BASOPHILS 0.1 thou/uL (0.0-0.2); ABSOLUTE EOSINOPHILS 0.6 thou/uL (0.0-0.7); ABSOLUTE MONOCYTES 0.9 thou/uL (0.0-1.2); ABSOLUTE NEUTROPHILS 11.9 thou/uL (1.6-8.1); PLATELET ESTIMATE INCREASED
[2019-12-30 14:48] LABS: ANISOCYTOSIS Occasional
--- NOTE | 2019-12-30 16:07 | NUR ---
CALLED AT 1550 HRS TO GIVE REPORT/HANDOFF TO ADMITTING NURSE. RN UNAVAILABLE. ATTEMPTED CALL FOR HANDOFF REPORT AT 1605HRS. RN STILL UNAVAILABLE & CHARGE NURSE DECLINED PHONE REPORT & TOLD THIS RN TO "BRING HER UP".
--- NOTE | 2019-12-30 16:10 | EKG ---
[place] [address] ELECTROCARDIOGRAM REPORT Name: YOVANA CORTEZ Room: [place] [address] ADM IN .R.#: [id number] Admission: 12/30/19 Attend Phys: Nusrat Salazar, Discharge: Date of : 47 Date of Service: 12/30/19 1332 Report #: [id number] THIS REPORT FOR: //name// [facility] ED Test Date: 2019-12-30 Test Time: 13:32:23 Pat Name: YOVANA CORTEZ Department: Room: [facility] Gender: F Ship Carpenter: SALVADOR : 1945 Requested By: Ranulfo Lehman Order Number: [id number] MD: Kenneth Martinez Measurements Intervals [place] Rate: 157 P: [place]: QRS: -67 QRSD: 108 T: 107 QT: 343 QTc: 555 Interpretive Statements Atrial fibrillation with rapid V-rate Inferior infarct, old Consider anterolateral infarct Lateral leads are also involved Compared to ECG 12/05/2019 16:58:57 Prolonged QT interval no longer present Myocardial infarct finding still present Electronically Signed On 12-30-2019 16:08:55 CDT by Kenneth Martinez [email or web address] <ELECTRONICALLY SIGNED> By: Kenneth Martinez MD, FACC 12/30/19 1608 1332 1332 Kenneth Martinez MD, [facility] /EPI
[2019-12-30 16:11] VITALS: BP 136/61
--- NOTE | 2019-12-30 16:15 | NUR ---
PT TO ROOM 229. PT ORIENTED TO ROOM. CALL LIGHT WITHIN REACH. CARDIZEM GTT INFUSING. AFIB IN 120S
[2019-12-30 16:30] VITALS: BP 120/51
--- NOTE | 2019-12-30 18:23 | NUR ---
PT RESTING IN BED. CARDIZEM GTT INFUSING. AFIB ON MONITOR. DENIES PAIN
[2019-12-30 20:00] VITALS: BP 133/54
--- NOTE | 2019-12-30 20:00 | NUR ---
RECEIVED REPORT AND ASSUMED CARE OF PT, ASSESSMENT COMPLETED. PT RESTING IN BED WATCHING TV. O2 ON AT 2L/NC, NO SOA NOTED. TELEMETRY ON SHOWING A-FIB, CARDIZEM INFUSING AT 10 MG/HR. WILL CONT TO MONITOR AND ASSIST NEEDED
--- NOTE | 2019-12-30 23:30 | NUR ---
ASSISTED TO BSC, PT C/O BEING DIZZY AND NAUSEATED. AFTER SITTING FOR A COUPLE OF MIN SYMPTOMS RESOLVED. TELEMETRY SHOWING HR INTO 50'S. DELMA MEDINA'D. PT WEARING HOME CPAP WITH O2.
[2019-12-31] VITALS: BP 105/40
[2019-12-31 04:00] VITALS: BP 127/44
[2019-12-31 04:43] LABS: HEMATOCRIT 27.5 % (37.0-47.0); HEMOGLOBIN 9.2 gm/dL (12.0-15.0); MCH 28.1 pg (26.0-34.0); MCHC 33.6 g/dL (28.0-37.0); MCV 83.6 fL (80.0-100.0); MPV 8.1 fl. (7.2-11.1); RBC 3.29 mil/uL (4.20-5.00); RDW-CV 15.2 % (10.5-14.5)
[2019-12-31 04:57] LABS: CALCIUM 8.6 mg/dL (8.5-10.1); CREATININE 2.1 mg/dL (0.6-1.3); MAGNESIUM 1.9 mg/dL (1.8-2.4)
--- NOTE | 2019-12-31 05:48 | NUR ---
SLEPT WELL. TELEMETRY CONVERTED TO SINUS KAYLA. CARDIZEM REMAINS OFF. ASSISTED TO BSC. HS GOALS OF REST AND SAFETY ACHIEVED. HOURLY ROUNDING OBSERVED,
--- NOTE | 2019-12-31 07:10 | NUR ---
CHANGE OF SHIFT, BEDSIDE REPORT GIVEN PATIENT SEEN AT BEDSIDE, IN BED ASLEEP ASSUMED PATIENT CARE
[2019-12-31 08:00] VITALS: BP 137/49
[2019-12-31 12:00] VITALS: BP 134/47
--- NOTE | 2019-12-31 14:18 | 2DMMODE ---
[place] [address] 2 D/M-MODE ECHOCARDIOGRAM Name: [facility]: [facility] IN .Humza.#: [id number] Admission: 12/30/19 Attend Phys: Nusrat Salazar, Discharge: Date of : 47 Date of Service: 12/31/19 1416 Report #: [id number] THIS REPORT FOR: cc: TRE - No family physician/PCP TRE - No family physician/PCP Isai Mcpherson MD [facility] ~ APPROVED REPORT Study performed: 12/31/2019 10:51:25 EXAM: Limited 2D Echocardiogram Patient Location: In-Patient Room #: 229 Status: routine BSA: 1.80 HR: 60 bpm BP: 137/49 mmHg Rhythm: NSR Other Information Study Quality: Good Indications Rule out pericardial effusion Left Ventricle The left ventricle is normal size. There is normal left ventricular wall thickness. The left ventricular systolic function is normal. The left ventricular ejection fraction is within the normal range. LVEF is 60-65%. Right Ventricle The right ventricle is normal size. The right ventricular systolic function is normal. Atria The left atrium size is normal. The right atrium size is normal. Aortic Valve Mild aortic valve sclerosis. Mitral Valve The mitral valve is normal in structure. [facility] [address] [place] [address] 2 D/M-MODE ECHOCARDIOGRAM Name: YOVANA CORTEZ Room: 229-[facility] IN M.R.#: [id number] Admission: 12/30/19 Attend Phys: Nusrat Salazar, Discharge: Date of : 47 Date of Service: 12/31/19 141 Report #: [id number] Tricuspid Valve The tricuspid valve is normal in structure. Pulmonic Valve The pulmonary valve is normal in structure. Great Vessels The aortic root is normal in size. IVC is normal in size and collapses >50% with inspiration. Pericardium Mild circumferential pericardial effusion. Prominent left pleural effusion. <Conclusion> The left ventricle is normal size. There is normal left ventricular wall thickness. The left ventricular systolic function is normal. The left ventricular ejection fraction is within the normal range. LVEF is 60-65%. The right ventricle is normal size. The left atrium size is normal. The right atrium size is normal. Mild aortic valve sclerosis. The mitral valve is normal in structure. The tricuspid valve is normal in structure. IVC is normal in size and collapses >50% with inspiration. Mild circumferential pericardial effusion. Prominent left pleural effusion. <ELECTRONICALLY SIGNED> By: Isai Mcpherson MD, FACC 12/31/19 1416 141 1416 Isai Mcpherson MD, FACC /INF
[2019-12-31 14:56] LABS: SOURCE PLEURAL FLUID; TOTAL VOLUME 1310 ml
[2019-12-31 14:57] LABS: CLARITY CLOUDY
--- NOTE | 2019-12-31 15:01 | EKG ---
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1945 Requested By: Kenneth Martinez Order Number: [id number] Ansley MD: Isai Mcpherson Measurements Intervals [place] Rate: 62 P: 42 MS: 249 QRS: -9 QRSD: 92 T: 14 QT: 511 QTc: 519 Interpretive Statements Sinus rhythm Prolonged MS interval Borderline low voltage, extremity leads Prolonged QT interval Compared to ECG 12/30/2019 13:32:23 First degree AV block now present Prolonged QT interval now present Atrial fibrillation no longer present Myocardial infarct finding no longer present Electronically Signed On 12-31-2019 15:00:03 CDT by Isai Mcpherson [email or web address] <ELECTRONICALLY SIGNED> By: Isai Mcpherson MD, FACC 12/31/19 1500 1 1 Isai Mcpherson MD, [facility] /EPI
[2019-12-31 15:05] LABS: BF RBC <1000 /mm3; TOTAL CELL COUNT 411 /mm3
--- NOTE | 2019-12-31 15:05 | NUR ---
Pt known to this CM from previous hospital stay. Pt resides at home alone. Independent. CM assist Pt's dtr in arranging home o2 last week through . Pt also has a cpap. No hx of HH or SNF. Goal is home at tx. Following.
[2019-12-31 15:50] LABS: BF POLYS 40 %
[2019-12-31 15:51] LABS: BF EOSINOPHILS 1 %; BF LYMPHOCYTES 29 %; BF MONOCYTES 30 %
[2019-12-31 16:00] VITALS: BP 105/34
[2019-12-31 18:50] LABS: URINE BILIRUBIN NEGATIVE (Negative); URINE BLOOD NEGATIVE (Negative); URINE CLARITY CLEAR; URINE COLOR YELLOW; URINE GLUCOSE-RANDOM NEGATIVE (Negative); URINE KETONES NEGATIVE (Negative); URINE LEUKOCYTES-REFLEX TRACE (Negative); URINE NITRITE-REFLEX NEGATIVE (Negative); URINE PROTEIN NEGATIVE (Negative); URINE SPECIFIC GRAVITY 1.025 (1.005-1.030); URINE UROBILINOGEN 0.2 E.U./dl (0.2-1.0)
[2019-12-31 19:00] LABS: BACTERIA-REFLEX >30 Many /HPF (None Seen); CASTS None Seen /LPF (None Seen); CRYSTALS None Seen /LPF (None Seen); SQUAMOUS >10 Many /LPF (0-3); URINE RBC 0-2 Rare /HPF (0-2); URINE WBC-REFLEX 6-15 Few /HPF (0-5); YEAST-REFLEX Present (None Seen)
[2019-12-31 20:30] VITALS: BP 141/38
[2020-01-01 00:29] VITALS: BP 132/48
[2020-01-01 04:29] VITALS: BP 130/41
--- NOTE | 2020-01-01 06:16 | NUR ---
PATIENT SLEPT MOST OF THE NIGHT. IV FLUIDS CONTINUE TO INFUSE AT 100 ML/HR. PATIENT HAD NO COMPLAINTS OF PAIN. PATIENT HAS REMAINED ON ROOM AIR BUT DID WEAR CPAP OVERNIGHT. WILL CONTINUE TO MONITOR.
[2020-01-01 06:19] LABS: HEMATOCRIT 26.8 % (37.0-47.0)
[2020-01-01 06:20] LABS: HEMATOCRIT 26.6 % (37.0-47.0); HEMOGLOBIN 9.1 gm/dL (12.0-15.0); MCH 28.7 pg (26.0-34.0); MCHC 34.3 g/dL (28.0-37.0); MCV 83.7 fL (80.0-100.0); MPV 8.1 fl. (7.2-11.1); RBC 3.18 mil/uL (4.20-5.00); RDW-CV 15.2 % (10.5-14.5); WBC 9.8 thou/uL (4.0-11.0)
[2020-01-01 06:29] LABS: ALBUMIN 2.2 g/dL (3.4-5.0); CALCIUM 8.2 mg/dL (8.5-10.1); CREATININE 2.1 mg/dL (0.6-1.3); MAGNESIUM 1.9 mg/dL (1.8-2.4); PHOSPHORUS* 3.1 mg/dL (2.5-4.9); POTASSIUM 3.4 mmol/L (3.5-5.1)
[2020-01-01 08:00] VITALS: BP 144/39
--- NOTE | 2020-01-01 08:28 | CON ---
[address] [address] CONSULTATION Name: YOVANA CORTEZ Room: [address] IN M.R.#: [id number] Admission: 12/30/19 Attend Phys: Nusrat Salazar MD Discharge: Date of : 47 Report #: [id number] THIS REPORT FOR: //name// cc: TRE Beaulieu family physician/PCP TRE - No family physician/PCP ~ THIS REPORT FOR: //name// CC: Precious Campbell DO [facility] physician/PCP Isai Mcpherson MD [facility] Nusrat Salazar CARDIOLOGY CONSULTATION INDICATION: Atrial fibrillation with rapid ventricular response rate and syncope. HISTORY OF PRESENT ILLNESS: The patient is a very pleasant 74-year-old white female with a history of recently diagnosed atrial fibrillation and flutter. She has been on increasing doses of flecainide. At her initial presentation, she converted from atrial fibrillation to sinus rhythm on flecainide. She has had recurrence of the atrial fibrillation this morning with palpitations, chest discomfort, lightheadedness, dizziness and syncope. She has been on flecainide, but no other antiarrhythmic medication. She has a history of coronary artery disease with recent percutaneous coronary intervention to the mid left anterior descending coronary artery with drug-eluting stent placement. She has preserved left ventricular systolic function. She had otherwise moderate nonocclusive disease noted. Her initial troponin today is unremarkable. She has a history of bilateral carotid artery disease with greater than 70% bilateral stenoses by ultrasound. She is not having any symptoms to suggest transient ischemic attack or stroke. She is on dual antiplatelet therapy for her recent percutaneous coronary intervention. She had an episode of significant weight gain and increasing shortness of breath and hypoxia recently. She has been placed on supplemental oxygen, which has improved her symptoms of hypoxia. With increasing doses of Lasix, she has achieved an adequate diuresis; however, her BUN and creatinine are now somewhat elevated consistent with acute renal failure. She has a history of renal artery stenosis, status post recent stenting. CARDIAC RISK FACTORS: Include hypertension and dyslipidemia for which [place] [address] CONSULTATION Name: YOVANA CORTEZ Room: [address] IN [facility].#: [id number] Admission: 12/30/19 Attend Phys: Nusrat Salazar MD Discharge: Date of : 47 Report #: [id number] PAST MEDICAL HISTORY: Coronary artery disease, paroxysmal atrial fibrillation, hypertension, dyslipidemia, bilateral carotid vascular disease, renal artery stenosis, hypoxia on O2, tonsillectomy, hysterectomy, cholecystectomy, laparoscopy with adhesiolysis, sleep apnea. HOME MEDICATIONS: Flecainide 50 mg p.o. b.i.d., metoprolol succinate 50 mg q.a.m. and 100 mg q.p.m., spironolactone 25 mg daily, Lasix 40 mg daily, potassium chloride 20 mEq daily, losartan 100 mg daily, insulin NPH, Tylenol p.r.n., Eliquis 5 mg b.i.d., hydralazine 50 mg b.i.d., Atrovent inhaler 2 puffs q.i.d., and Effient 10 mg daily. ALLERGIES: KEFLEX, CODEINE, MORPHINE, ADORE INHIBITORS, TRICOR AND MUSCLE PAIN WITH STATINS. FAMILY HISTORY: The patient's father had heart disease. SOCIAL HISTORY: The patient is . She does not smoke. She does not drink alcohol. PHYSICAL EXAMINATION: VITAL SIGNS: Heart rate currently in the 120s, blood pressure 126/88. GENERAL: This is a pleasant elderly female, in no distress. Mood and affect appropriate. HEENT: The patient is wearing glasses. Extraocular muscles intact. Mucous membranes are moist. NECK: Reveals no jugular venous distention. Bilateral carotid bruits noted. CHEST: Reveals breath sounds clear with diminished breath sounds in the bases. CARDIOVASCULAR: Reveals an irregularly irregular rhythm without gallop, rub or murmur. ABDOMEN: Reveals normal bowel sounds. The abdomen is soft, nontender. EXTREMITIES: Shows no edema. Peripheral pulses are palpable. SKIN: Dry. LABORATORY DATA: Initial EKG shows atrial fibrillation with rapid ventricular response rate without acute changes, otherwise. Labs are reviewed. Sodium 136, potassium 4.1, chloride 95, bicarbonate 32, BUN 43, creatinine 1.9, serum glucose 222. AST 14, lipase 90, total bilirubin 0.5, calcium 8.9, phosphorus 3.2, magnesium 1.9, alkaline phosphatase 58, ALT 14, total protein 7.1, albumin 2.8. EGFR 26. Lactic acid 0.9. Troponin less than 0.06. NT-proBNP 2224. Protime 13.4, INR 1.3, APTT 39.2, white blood cell count 14.5, hemoglobin 10.9, hematocrit 33.2, platelet count 465,000. Chest x-ray shows bilateral pleural effusions. IMPRESSION AND RECOMMENDATIONS: 1. Atrial fibrillation with rapid ventricular response rate. We will give [facility] [address] [place] [address] CONSULTATION Name: YOVANA CORTEZ Room: [address] IN [place]#: [id number] Admission: 12/30/19 Attend Phys: Nusrat Salazar MD Discharge: Date of : 47 Report #: [id number] flecainide bolus of 300 mg and increase her daily dose 150 mg twice daily. 2. Coronary artery disease, presently stable. Continue dual antiplatelet therapy. 3. Probable acute on chronic diastolic heart failure. The patient has been over diuresed at this point in time. We will continue spironolactone would hold her furosemide. We will give gentle fluid bolus at this time. 4. Bilateral carotid disease, presently stable. She is on dual antiplatelet therapy. She is not having any symptoms to suggest transient ischemic attack or stroke. 5. Acute renal failure with elevation in BUN and creatinine. We will give gentle fluid bolus and follow labs in a.m. 6. Pericardial effusion noted on CT scan. We will obtain limited echo tomorrow. 7. Renal artery stenosis, status post recent stenting. 8. Hypertension. Blood pressure reasonably controlled at this point in time. 9. Hyperlipidemia. The patient is statin intolerant. We will repeat a fasting lipid profile. <ELECTRONICALLY SIGNED> By: Kenneth Martinez MD, FACC 01/01/20 0828 1601 1826Micmary Martinez MD, FACC /nt
[2020-01-01 11:30] VITALS: BP 123/59
--- NOTE | 2020-01-01 11:41 | CON ---
[address] [address] CONSULTATION Name: YOVANA CORTEZ Room: [address] IN M.R.#: [id number] Admission: 12/30/19 Attend Phys: Nusrat Salazar MD Discharge: Date of : 47 Report #: [id number] THIS REPORT FOR: //name// cc: TRE Beaulieu family physician/PCP TRE - Brittnee family physician/PCP ~ THIS REPORT FOR: //name// CC: TRE physician/PCP Nusrat Salazar DATE OF SERVICE: 12/31/2019 NEPHROLOGY CONSULT CONSULTING PHYSICIAN: Nusrat Salazar MD. REASON FOR CONSULT: Acute kidney injury. HISTORY OF PRESENT ILLNESS: A 74-year-old female comes in with AFib with RVR and a syncopal episode. She has been seen by Cardiology. I am asked to see her because of acute renal insufficiency. She had an admission creatinine of 1.9, it is up to 2.1 today. She was on losartan, Lasix, Aldactone, hydrochlorothiazide at home. She also has a renal artery stenosis and at the end of November, underwent bilateral renal artery stenting. Imaging here did show evidence of a large subcapsular renal hematoma. She is not having any pain. Denies any trauma. She was on Eliquis, this is on hold currently. She appears to be comfortable, has no significant complaints. REVIEW OF SYSTEMS: Constitutional, psych, heme, eyes, ENT, respiratory, cardiac, GI, , endocrine, all negative except as documented above. CURRENT MEDICATIONS: Reviewed. PAST MEDICAL HISTORY: Diabetes, hypertension, vascular disease, asthma, COPD, sleep apnea, dyslipidemia, history of coronary artery disease and stent placement, AFib. FAMILY HISTORY: Not pertinent in this 74-year-old female. SOCIAL HISTORY: No tobacco. PHYSICAL EXAMINATION: VITAL SIGNS: Blood pressure is 137/49, pulse 63, respirations 17, temperature 36.8. GENERAL: No acute distress. E[place]: [place] [address] CONSULTATION Name: DANAYOVANA Room: [address] IN ..#: [id number] Admission: 12/30/19 Attend Phys: Nusrat Salazar MD Discharge: Date of : 47 Report #: [id number] EARS: Externally normal. NECK: Supple. CARDIOVASCULAR: Regular rate. LUNGS: No crackles. ABDOMEN: Soft. MUSCULOSKELETAL: Nontender. PSYCHIATRIC: Awake, alert. LABORATORY DATA: White cell count 30, hemoglobin 9.2, platelets 409. Sodium 136, potassium 4, chloride 97, bicarbonate 34, BUN 46, creatinine 2.1, glucose 190, calcium 8.6, magnesium 1.9. ASSESSMENT: 1. Acute kidney injury with an admission creatinine of 1.9 in the setting of atrial fibrillation with rapid ventricular response. Lasix, Aldactone, losartan and hydrochlorothiazide. CT abdomen showing a large subcapsular renal hematoma. CK was okay. Baseline creatinine appears to be 0.9-1.1 on 12/07/2019; creatinine was 1.2. 2. Left subcapsular renal hematoma, 10.4 cm in size with renal compression in the setting of undergoing bilateral renal artery stent placement by ____ in [place] at the end of November. 3. Hypoalbuminemia with an albumin of 2.8. 4. Suspected nonobstructing 3 mm kidney stones noted on CT. 5. Hypertension. 6. Insulin-dependent diabetes type 2. 7. Atrial fibrillation. 8. Obstructive sleep apnea. 9. Chronic obstructive pulmonary disease. 10. Asthma. 11. Coronary artery disease. 12. Renal artery stenosis, history of stenting. 13. Pericardial effusion. Cardiology has been consulted. 14. Anemia with the hemoglobin dropping from 10.9 to 9.2 in the setting of renal hematoma. 15. Bilateral carotid disease with plans for CEA in the future. 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 17. Pleural effusion. PLAN: 1. We will consult Dr. Vaughn to help manage the subcapsular hematoma, this was not mentioned on the 11/23/2019 CTA and is likely related to a procedural complication from a renal artery stent placement at the end of November. 2. Check U/A. 3. Eliquis is on hold. We will continue to hold losartan, Lasix and hydrochlorothiazide. 4. [place] [address] CONSULTATION Name: YOVANA CORTEZ Room: [address] IN .R.#: [id number] Admission: 12/30/19 Attend Phys: Nusrat Salazar MD Discharge: Date of : 47 Report #: [id number] 5. We will check lab again in the a.m. 6. Echocardiogram has been ordered. Thank you for requesting my opinion in the care and management of this patient. <ELECTRONICALLY SIGNED> By: Maddie Casanova MD 01/01/20 1141 1237 1330Maddie Casanova MD /nt
[2020-01-01 16:00] VITALS: BP 137/39
--- NOTE | 2020-01-01 17:31 | NUR ---
ASSUMED CARE OF PT APPROX 0730. REASSESMENT COMPLETED CHARTED, MEDICATIONS GIVEN CHARTED. PT UP TO BEDSIDE CHAIR THIS AM. PT OFF UNIT THIS AM FOR PROCEDURE. SAFTEY PRECAUTIONS UTILIZED, HOURLY ROUNDING. BED IN LOW POSITION AND CALL LIGHT WITHIN REACH.
[2020-01-01 20:00] VITALS: BP 135/43
[2020-01-02] VITALS (8 sets, daily range): BP systolic 91–152; BP diastolic 36–89
[2020-01-02 10:55] LABS: CALCIUM 8.6 mg/dL (8.5-10.1); CREATININE 1.8 mg/dL (0.6-1.3); POTASSIUM 3.9 mmol/L (3.5-5.1)
[2020-01-02 11:00] LABS: HEMATOCRIT 31.2 % (37.0-47.0); HEMOGLOBIN 10.2 gm/dL (12.0-15.0); MCH 27.8 pg (26.0-34.0); MCHC 32.8 g/dL (28.0-37.0); MCV 84.7 fL (80.0-100.0); MPV 8.6 fl. (7.2-11.1); RBC 3.68 mil/uL (4.20-5.00); RDW-CV 15.2 % (10.5-14.5); WBC 11.3 thou/uL (4.0-11.0)
--- NOTE | 2020-01-02 11:35 | NUR ---
ASSUMED PT CARE AT 0730, PT RESTING IN BED SATTING 95% ON RA AND TRACING SR W/ A 1D ON THE CONSTRUCTION CONTROLLER, NO C/O PAIN OR SHORTNESS OF BREATH. PT NPO FOR DOPPLER OF ABD AND PELVIS THIS MORNING, AT APPROX 0840, PT DOWN IN US AND CONSTRUCTION CONTROLLER NOTED TO BE IN THE 130'S, EKG OBTAINED WHEN PT RETURNED TO ROOM, TRACING AFIB. DR CEE AND IVONE MOROCHO, CARDIOLOGY SILK BRUSHER, NOTIFIED. ORDERS RECEIVED FOR ONE TIME DOSE FLECAINIDE 100MG PO. HEART RATE CURRENTLY IN THE 110'S, IVONE CARDIOLOGY SILK BRUSHER ON FLOOR AT THIS TIME. PT DAUGHTER VOICED CONCERNS REGARDING STARTING OF ELIQUIS. DR CEE NOTIFIED, WILL RESTART THIS EVENING DUE TO THORACENTESIS LAST 2 DAYS. PT CURRENT BP 147/67, PT ASYMPTOMATIC BUT PT DOES STATE SHE FELT HER HEART FLIP INTO AFIB DURING US. IV FLUIDS DC'D. VASCULAR SURGERY SAW PT THIS AM REGARDING DOPPLER, NO INTERVENTION AT THIS TIME. PT UP W/ STAND BY ASSIST TO BEDSIDE COMODE. PT GOAL FOR TODAY IS TO CONVERT TO SR. AM ASSESSMENT CHARTED, MEDS PER MAR, HOURLY ROUNDING OBSERVED, WILL CONTINUE POC.
--- NOTE | 2020-01-02 17:13 | NUR ---
NO ACUTE CHANGES THROUGHOUT REST OF SHIFT, CONTINUES TO TRACE SB ON THE RESULTS TECHNICIAN IN THE UPPER 50'S. CARDIOLOGY STARTED TORSEMIDE AND IV POTASSIUM, PT REFUSED POTASSIUM, EDUCATION GIVEN. PT DAUGHTER AT BEDSIDE OFF AND ON THROUGHOUT SHIFT. MEDS PER NOV, HOURLY ROUNDING OBSERVED, WILL CONTINUE POC.
--- NOTE | 2020-01-02 17:31 | EKG ---
[place] [address] ELECTROCARDIOGRAM REPORT Name: YOVANA CORTEZ Room: [address] ADM IN M.R.#: [id number] Admission: 12/30/19 Attend Phys: Nusrat Salazar, Discharge: Date of : 47 Date of Service: 01/02/20 0859 Report #: [id number] THIS REPORT FOR: //name// [facility] Test Date: 2020-01-02 Test Time: 08:59:44 Pat Name: YOVANA CORTEZ Department: Room: [address] Gender: F Inner Tube Inserter: CCD : 1945 Requested By: Nusrat Salazar Order Number: [id number] Reading MD: Kenneth Martinez Measurements Intervals [place] Rate: 111 P: CO: QRS: -65 QRSD: 110 T: 101 QT: 378 QTc: 514 Interpretive Statements Atrial fibrillation Abnormal R-wave progression, late transition Inferior infarct, old Abnormal lateral Q waves Prolonged QT interval Baseline wander in lead(s) V6 Compared to ECG 12/31/2019 09:32:59 Myocardial infarct finding now present Q waves now present Sinus rhythm no longer present First degree AV block no longer present Electronically Signed On 01-02-2020 17:29:53 CDT by Kenneth Martinez [email or web address] <ELECTRONICALLY SIGNED> By: Kenneth Martinez MD, [facility] 01/02/20 1729 0859 Kenneth Martinez MD, [facility] /EPI
--- NOTE | 2020-01-02 17:32 | EKG ---
[place] [address] ELECTROCARDIOGRAM REPORT Name: DANAYOVANA Room: [address] ADM IN M.R.#: [id number] Admission: 12/30/19 Attend Phys: Nusrat Salazar, Discharge: Date of : 47 Date of Service: 01/02/20 1057 Report #: [id number] THIS REPORT FOR: //name// [facility] Test Date: 2020-01-02 Test Time: 10:57:43 Pat Name: YOVANA CORTEZ Department: Room: [address] Gender: F Gum [place]: SHEILA : 1945 Requested By: Nusrat Salazar Order Number: [id number] Ansley MD: Kenneth Martinez Measurements Intervals [place] Rate: 120 P: 210 TX: 90 QRS: -114 QRSD: 138 T: 43 QT: 403 QTc: 570 Interpretive Statements Sinus or ectopic atrial tachycardia Right bundle branch block ST depression, consider ischemia, lateral lds Compared to ECG 12/31/2019 09:32:59 Right bundle-branch block now present ST (T wave) deviation now present Possible ischemia now present Sinus rhythm no longer present First degree AV block no longer present Prolonged QT interval no longer present Electronically Signed On 01-02-2020 17:30:23 CDT by Kenneth Martinez [email or web address] <ELECTRONICALLY SIGNED> By: Kenneth Martinez MD, FAC 01/02/20 1730 1057 1057 Kenneth Martinez MD, [facility] /EPI
[2020-01-03] VITALS: BP 141/45
[2020-01-03 04:00] VITALS: BP 160/49
[2020-01-03 05:12] LABS: HEMATOCRIT 26.7 % (37.0-47.0); MCH 28.1 pg (26.0-34.0); MCHC 33.5 g/dL (28.0-37.0); MCV 83.8 fL (80.0-100.0); MPV 8.4 fl. (7.2-11.1); RBC 3.19 mil/uL (4.20-5.00); RDW-CV 15.1 % (10.5-14.5); WBC 12.4 thou/uL (4.0-11.0)
[2020-01-03 05:31] LABS: ALBUMIN 2.1 g/dL (3.4-5.0); CALCIUM 8.5 mg/dL (8.5-10.1); CALCIUM 8.7 mg/dL (8.5-10.1); CREATININE 1.7 mg/dL (0.6-1.3); MAGNESIUM 2.2 mg/dL (1.8-2.4); POTASSIUM 3.5 mmol/L (3.5-5.1); POTASSIUM 3.7 mmol/L (3.5-5.1)
--- NOTE | 2020-01-03 06:47 | NUR ---
PT SLEPT FAIRLY WELL OVERNIGHT, ONE EPISODE OF L SIDED RIB PAIN COMPLAINT-TYLENOL GIVEN WITH GOOD RESULT. PT RECEIVING RT TX AT THAT TIME AND BECAME DIZZY WHEN GETTING OOB AFTER TREATMENT. ASSISTED TO BSC TO VOID AND BACK TO BED WHERE SHE SLEPT QUIETLY THE REMAINDER OF THE NIGHT. AWAKE VISITING WITH DTR THIS MORNING, PULMONAR IN TO SEE PT. PT STATES L RIB/SIDE PAIN IMPROVED, NO COMPLAINTS OF DIZZINESS OR FATIGUE. DENIES NEED AT THIS TIME. TELE SB FIRST DEGREE BLOCK. CALL LITE IN EASY REACH, ABLE TO USE CALL LITE AND MAKE NEEDS KNOWN. BED ALARM REMAINS ON FOR SAFETY AT THIS TIME.
[2020-01-03 07:28] LABS: BF RBC 38979 /mm3; TOTAL CELL COUNT 395 /mm3
[2020-01-03 07:29] LABS: CLARITY HAZY; TOTAL VOLUME 960 ml
[2020-01-03 08:00] VITALS: BP 143/74
[2020-01-03 08:20] LABS: BF LYMPHOCYTES 34 %; BF MONOCYTES 58 %; BF POLYS 8 %; BF TISSUE 2 /100 WBC
[2020-01-03 08:21] LABS: SOURCE PLEURAL FLUID
--- NOTE | 2020-01-03 11:38 | NUR ---
ASSUMED PT CARE AT 0730, PT SITTING UP IN BED, SATTING 98% ON RA, TRACING SB ON THE HEALTH PROMOTION COORDINATOR AND C/O PAIN IN HER LEFT RIBS, PRN TYLENOL GIVEN W/ PARTIAL RELIEF. PT GOAL IS TO SEE CARDIOLOGY AND PULM TO WORK ON DC PLANNING TO HOME AND KEEP PAIN UNDER CONTROL. AM ASSESSMENT CHARTED, HOURLY ROUNDING OBSERVED, BED IN LOW POSITION, BED ALARM IN PLACE, CALL LIGHT W/IN REACH, MEDS PER NOV, WILL CONTINUE POC.
[2020-01-03] MEDS ORDERED: FLECAINIDE ACET50 M1 PO (11:43)
[2020-01-03] MEDS ORDERED: DEMADEX20 MG PO (11:43)
[2020-01-03] MEDS ORDERED: EFFIENT10 MG PO (11:43)
[2020-01-03] MEDS ORDERED: XOPENEX0.63 MG/3 NEB (12:01)
[2020-01-03 12:08] VITALS: BP 150/39
[2020-01-03 13:21] VITALS: BP 150/39
--- NOTE | 2020-01-03 14:04 | NUR ---
DISCHARGE ORDERS RECEIVED. DISCHARGE INSTRUCTIONS, CARE NOTES, SCRIPTS AND F/U APPTS. GIVEN TO PT. PT COMMUNICATES UNDERSTANDING OF DC TEACHING. DAUGHTER AT BEDSIDE, IV AND SENIOR MATERIALS ANALYST REMOVED. PT DC'D W/ ALL BELONGINGS AND PAPERWORK VIA WC W/ NURSING STAFF TO DAUGHTER'S PERSONAL VEHICLE.
[2020-01-03 15:08] LABS: BODY FLUID LDH 120 IU/L (())
--- NOTE | 2020-01-04 08:56 | CON ---
[address] [address] CONSULTATION Name: YOVANA CORTEZ Room: [address] IN M.R.#: [id number] Admission: 12/30/19 Attend Phys: Nusrat Salazar MD Discharge: 01/03/20 Date of : 47 Report #: [id number] THIS REPORT FOR: //name// cc: TRE Beaulieu family physician/PCP TRE Beaulieu family physician/PCP ~ THIS REPORT FOR: //name// CC: TRE physician/PCP Nusrat Salazar DATE OF SERVICE: 01/03/2020 REASON FOR CONSULTATION: I was asked to see this 74-year-old lady for pleural effusion. HISTORY OF PRESENT ILLNESS: She is a lifelong long nonsmoker, but has been exposed to secondhand smoking. She does have COPD. She is on albuterol p.r.n. at home. She has sleep apnea and is using CPAP for many years. She has not used it regularly for the past few weeks due to shortness of breath. About 7 weeks ago, she was admitted for chest pain, was found to have myocardial infarction and underwent stent placement. She was found to have bilateral renal artery stenosis. She had renal artery revascularization about 3 weeks ago. She developed a perinephric hematoma on the left side. She has been in and out of AFib for the past 3 weeks. She has been on Eliquis for the past 3 weeks and Effient for the past 7 weeks after her stent placement. She has had increased shortness of breath, presented to the Emergency Room, was found to have AFib with rapid ventricular response. She was brought to the Emergency Room via EMS. Her daughter, who is a nurse here at [facility], is at her bedside and has given me details. Eight weeks ago, she did not have any active problem other than her sleep apnea, which she was using her CPAP machine. She underwent right thoracentesis 2 days ago, 1300 mL of fluid was evacuated and yesterday she underwent left thoracentesis and 960 mL was evacuated. Her shortness of breath has improved. She does have some cough with yellow sputum production, which is not more than usual. She denies fever, chills, body ache. She denies chest pain. She is discouraged about all the events. She did receive Levaquin for 3 days last week. PAST MEDICAL HISTORY: Hypertension, diabetes mellitus, COPD, obstructive sleep apnea-hypopnea syndrome, colon ulcers, cataracts, tonsillectomy, hysterectomy, cystectomy, non-ST elevation status post stent to LAD on 10/19/2019, AFib/aflutter. ALLERGIES: ADORE INHIBITOR, LISINOPRIL, MORPHINE, CODEINE, ERYTHROMYCIN, CEPHALEXIN. MEDICATIONS: Currently, she is on Paxil, Pepcid, flecainide, [place] [address] CONSULTATION [facility] Room: [address] IN M.R.#: [id number] Admission: 12/30/19 Attend Phys: Nusrat Salazar MD Discharge: 01/03/20 Date of : 47 Report #: [id number] p.r.n., insulin, Xopenex, potassium p.r.n., Effient, torsemide. SOCIAL HISTORY: Lifelong nonsmoker, has been exposed to secondhand smoking. FAMILY HISTORY: Hypertension. REVIEW OF SYSTEMS: As mentioned as above, she has had lower extremity edema. Other systems are otherwise negative. PHYSICAL EXAMINATION: GENERAL: This is a well-developed lady, appears pale. VITAL SIGNS: Her O2 saturation is 99%, temperature 36.6, heart rate 54, respiratory rate 20, blood pressure 160/49. HEENT: Normocephalic, atraumatic. Pupils are equal, round, reactive to light. There is shallow oropharynx. Nose is clear. NECK: There is no JVD, lymphadenopathy or thyromegaly. CARDIOVASCULAR: Regular rate and rhythm. PMI is nondisplaced. CHEST: Inspection is normal. LUNGS: There are bibasilar crackles, dullness at the bases. There is no wheezing. ABDOMEN: Soft. Bowel sounds are good. There is no mass. EXTREMITIES: There is edema. LYMPHATICS: There is no lymphadenopathy. NEUROLOGIC: Alert and oriented. SKIN: Appears pale. LABORATORY AND DIAGNOSTIC DATA: I reviewed the following lab data. Her chest x-ray on 11/05/2019 did not show any pleural effusion. On 12/03/2019, did show very small bilateral pleural effusion. On admission, it did show bilateral effusion right more than left, increased vascular marking. Yesterday, x-ray does show small pleural effusion, bibasilar infiltrate/atelectasis, increased vascular marking. Her CT of abdomen on 12/29 did show large left subcapsular renal hematoma measuring 4.8 x 9.4 x 2.4 cm with compression of left renal parenchyma with some probable prerenal extension, 3 mm nonobstructive right renal calculi, postsurgical changes of cholecystectomy, hysterectomy, moderate bilateral pleural effusion, small pericardial effusion, severe abdominal aortic calcification. WBC 12.4, hemoglobin 9, platelets 440,000. Sodium 137, potassium 3.7, chloride 102, CO2 of 29, glucose 119, BUN 34, creatinine 1.7. On 12/05, her creatinine was 1. D-dimer 0.59. Cytology is pending. Pleural fluid study is pending. IMPRESSION: 1. Dyspnea, multifactorial in etiology including acute diastolic congestive [facility] [address] [place] [address] CONSULTATION Name: DANAYOVANA Room: [address] IN M.R.#: [id number] Admission: 12/30/19 Attend Phys: Nusrat Salazar MD Discharge: 01/03/20 Date of : 47 Report #: [id number] heart failure, volume overload due to acute kidney injury, bilateral pleural effusion. 2. Abnormal chest x-ray with bilateral pleural effusion. I suspect it is secondary to diastolic congestive heart failure and on the left side she does have large perinephric hematoma that also could cause pleural effusion. Other differential diagnosis of pleural fluid including inflammatory versus infectious versus malignancy (less likely) versus others. 3. Paroxysmal atrial fibrillation. 4. Coronary artery disease status post stent to left anterior descending on 10/2019. 5. Obstructive sleep apnea-hypopnea syndrome. 6. Chronic obstructive pulmonary disease. 7. Hypertension. 8. Diabetes mellitus. 9. Renal artery stenosis status post revascularization with perinephric hematoma. 10. Anemia. PLAN AND RECOMMENDATIONS: 1. Titrate FiO2 to keep O2 saturation 92%. 2. Continue bronchodilator. May use Atrovent or Xopenex. Avoid albuterol with history of AFib with rapid ventricular response. 3. Monitor hemoglobin. 4. Monitor creatinine. Nephrology is on the case. Follow Nephrology's recommendation. 5. Cardiology is on the case. Follow Cardiology's recommendations. 6. Follow up pleural fluid studies. 7. Use CPAP during sleep. I have discussed the importance of adequate treatment of obstructive sleep apnea-hypopnea syndrome, if untreated increase cardiovascular and PRODUCTION SUPPORT ENGINEER morbidity and mortality. 8. Start Protonix for stress ulcer prophylaxis. 9. The findings and recommendations were discussed with the patient and her daughter. They understood and agreed to proceed with the plan. I have answered all of their questions. Thank you very much for allowing me to participate in the care of this very nice lady. <ELECTRONICALLY SIGNED> By: Conor Jackman MD 01/04/20 0856 0646 0729Conor Jackman MD /nt
[2020-01-04 12:07] LABS: BODY FLUID PROTEIN 3.1 g/dL (())
[2020-01-04 12:07] LABS: BODY FLUID AMYLASE 14 U/L (())
--- NOTE | 2020-01-04 14:08 | PATH ---
[address] [address] PATHOLOGY RPT PROCEDURE Name: YOVANA CORTEZ Room: [address] IN [place]#: [id number] Admission: 12/30/19 Date of : 47 Discharge: 01/03/20 Report #: [id number] Path Case #: [id number] Note [facility] Accession Number: [id number] TESTS RESULT FLAG UNITS REF RANGE LAB Clinician Provided Cytology Information No. of containers..01 Other (Miscellaneous) Source: PLEURAL DIAGNOSIS: 02 PLEURAL NEGATIVE FOR MALIGNANT CELLS. SCANT CELLULARITY WITH FEW MESOTHELIAL AND INFLAMMATORY CELLS AND RBCs. CELLULAR DEGENERATION IS PRESENT. THIS INTERPRETATION INCLUDES EVALUATION OF A CELL BLOCK. Signed out by: 02 Pedro Pablo Santos MD, Pathologist NPI- [id number] Performed by: 01 Alexander Smalls, Business Initiatives Manager ([facility]) Gross description: 01 30 ML, CLOUDY ORANGE, 1 TP 1CB /LCS 01/03/2020 1149 Local FLAG LEGEND: L-Low Normal,H-High Normal,LL-Alert Low,HH-Alert High <-Panic Low,>-Panic High,A-Abnormal,AA-Critical Abnormal Performed at: [address] [place] [address] Braden Cadena MD, 02 [facility] [address] [place] [address] Pedro Pablo Santos MD, Performed at: [address], [place], [place] [id number] MD Braden Cadena MD Phone: [phone]
--- NOTE | 2020-01-04 14:49 | PATH ---
[address] [address] PATHOLOGY RPT PROCEDURE Name: [facility] Room: [address] IN [place]#: [id number] Admission: 12/30/19 Date of : 47 Discharge: 01/03/20 Report #: [id number] Path Case #: [id number] Note [facility] Accession Number: [id number] TESTS RESULT FLAG UNITS REF RANGE LAB Clinician Provided Cytology Information No. of containers..01 Other (Miscellaneous) Source: R PLEURAL DIAGNOSIS: 02 R PLEURAL NEGATIVE FOR MALIGNANT CELLS. REACTIVE MESOTHELIAL CELLS AND FEW INFLAMMATORY CELLS ARE PRESENT. Signed out by: 02 Pedro Pablo Santos MD, Pathologist NPI- [id number] Performed by: Alexander Smalls [place] ([facility]) Gross description: 01 30ML, CLOUDY YELLOW, 1 TP 1CB /LCS 01/01/2020 1056 Local FLAG LEGEND: L-Low Normal,H-High Normal,LL-Alert Low,HH-Alert High <-Panic Low,>-Panic High,A-Abnormal,AA-Critical Abnormal Performed at: [address] [place] [address] Braden Cadena MD, [address] [place] [address] [address] [facility], [place] [address] Pedro Pablo Santos MD, Specimen Comment: A courtesy copy of this report has been sent to [phone], [phone] Specimen Comment: [phone] Specimen Comment: Report sent to / DR CEE Performed at: [address], [place], [place] [id number] MD Braden Cadena MD Phone: [phone]
[2020-01-04 15:08] LABS: BODY FLUID PH 7.6 (Not Estab.)
[2020-01-05 17:54] LABS: SOURCE PLEURAL; SOURCE THORACENTESIS
[2020-01-05 17:56] LABS: SOURCE PLEURAL
[2020-01-05 17:56] LABS: SOURCE THORACENTESIS
== END 2020-01-03 14:00 | disposition home or self-care (01) | DRG 308 ==
LOC: M.ERS 13:27 → M.2W 14:26 → M.TBA-ER 14:26 → M.2W 16:31
PROVIDERS: Family Medicine; Internal Medicine Nephrology; Internal Medicine Pulmonary Disease; Registered Nurse; Surgery Vascular Surgery; ADMIT Internal Medicine
PROC: 0W993ZZ Drainage of Right Pleural Cavity, Percutaneous Approach (ICD-10-PCS; principal; 2019-12-31)
PROC: 0W9B3ZZ Drainage of Left Pleural Cavity, Percutaneous Approach (ICD-10-PCS; 2020-01-02)
DX: I48.0 Paroxysmal atrial fibrillation (principal); R65.11 Systemic inflammatory response syndrome (SIRS) of non-infectious origin with acute organ dysfunction; N17.9 Acute kidney failure, unspecified; I31.3 Pericardial effusion (noninflammatory); K55.1 Chronic vascular disorders of intestine; S36.892A Contusion of other intra-abdominal organs, initial encounter; I50.22 Chronic systolic (congestive) heart failure; S37.012A Minor contusion of left kidney, initial encounter; I13.0 Hypertensive heart and chronic kidney disease with heart failure and stage 1 through stage 4 chronic kidney disease, or unspecified chronic kidney disease; J45.909 Unspecified asthma, uncomplicated; J44.9 Chronic obstructive pulmonary disease, unspecified; E78.5 Hyperlipidemia, unspecified; N18.3 Chronic kidney disease, stage 3 (moderate); I99.9 Unspecified disorder of circulatory system; E11.22 Type 2 diabetes mellitus with diabetic chronic kidney disease; I70.1 Atherosclerosis of renal artery; D64.9 Anemia, unspecified; G47.33 Obstructive sleep apnea (adult) (pediatric); I65.23 Occlusion and stenosis of bilateral carotid arteries; D47.3 Essential (hemorrhagic) thrombocythemia; Z98.41 Cataract extraction status, right eye; Z86.12 Personal history of poliomyelitis; Z98.42 Cataract extraction status, left eye; Z90.49 Acquired absence of other specified parts of digestive tract; Z90.710 Acquired absence of both cervix and uterus; I25.2 Old myocardial infarction; Z95.5 Presence of coronary angioplasty implant and graft; Z88.6 Allergy status to analgesic agent; Z88.1 Allergy status to other antibiotic agents; Z88.8 Allergy status to other drugs, medicaments and biological substances; Z79.4 Long term (current) use of insulin

== ENCOUNTER 2020-01-04 15:46 | Emergency (ER) | payer MEDICARE ==
[~2020-01-04] VITALS: Ht 154.9 cm; Wt 77.1 kg
[~2020-01-04 15:46] MED LIST changes: +DEMADEX20 MG PO; +EFFIENT10 MG PO; +FLECAINIDE ACET50 M1 PO; +HYDRALAZINE 5050 MG PO; +K-DUR10 MEQ PO; +LASIX 40 MG TAB40 MG PO; +LEVAQUIN 500 M500 M3 PO; +TYLENOL EXTRA500 MG PO; +XOPENEX0.63 MG/3 NEB
[2020-01-04 17:03] LABS: ABSOLUTE BASOPHILS 0.1 thou/uL (0.0-0.2); ABSOLUTE EOSINOPHILS 0.2 thou/uL (0.0-0.7); ABSOLUTE LYMPHOCYTES 0.8 thou/uL (0.8-5.3); ABSOLUTE MONOCYTES 1.9 thou/uL (0.0-1.2); ABSOLUTE NEUTROPHILS 14.2 thou/uL (1.6-8.1); BASOPHILS 0.4 %; HEMATOCRIT 29.7 % (37.0-47.0); HEMOGLOBIN 9.7 gm/dL (12.0-15.0); LYMPHOCYTES 4.6 %; MCH 27.6 pg (26.0-34.0); MCHC 32.8 g/dL (28.0-37.0); MCV 84.2 fL (80.0-100.0); MPV 8.1 fl. (7.2-11.1); NUCLEATED RBCS 0 /100WBC; PLATELET COUNT* 584 thou/uL (150-400); RBC 3.52 mil/uL (4.20-5.00); RDW-CV 15.6 % (10.5-14.5); WBC 17.1 thou/uL (4.0-11.0)
[2020-01-04 17:20] LABS: CALCIUM 8.6 mg/dL (8.5-10.1); CREATININE 1.6 mg/dL (0.6-1.3); POTASSIUM 4.2 mmol/L (3.5-5.1)
[2020-01-04 17:32] LABS: ALBUMIN 2.1 g/dL (3.4-5.0); TOTAL BILIRUBIN 0.5 mg/dL (<0.1-1.0); TOTAL PROTEIN 6.5 g/dL (6.4-8.2)
[2020-01-04 20:37] LABS: URINE BILIRUBIN NEGATIVE (Negative); URINE BLOOD TRACE (Negative); URINE CLARITY CLEAR; URINE COLOR YELLOW; URINE GLUCOSE-RANDOM NEGATIVE (Negative); URINE KETONES NEGATIVE (Negative); URINE LEUKOCYTES-REFLEX TRACE (Negative); URINE NITRITE-REFLEX NEGATIVE (Negative); URINE PROTEIN NEGATIVE (Negative); URINE UROBILINOGEN 0.2 E.U./dl (0.2-1.0)
[2020-01-04 20:44] LABS: HYALINE CASTS 4-10 Moderate /LPF (None Seen); SQUAMOUS >10 Many /LPF (0-3); YEAST-REFLEX Present (None Seen)
[2020-01-04 20:45] LABS: CRYSTALS None Seen /LPF (None Seen); MUCUS None Seen strn/LPF (None Seen); URINE RBC 0-2 Rare /HPF (0-2); URINE WBC-REFLEX 0-5 Rare /HPF (0-5)
[2020-01-04 20:46] LABS: BACTERIA-REFLEX 1-9 Few /HPF (None Seen)
[2020-01-04 21:15] LABS: APTT 47.4 Seconds (25.0-31.3); INR 1.5; PROTIME 15.1 Seconds (9.20-11.50)
[2020-01-04 22:16] VITALS: BP 178/46
--- NOTE | 2020-01-06 14:42 | EKG ---
[place] [address] ELECTROCARDIOGRAM REPORT Name: YOVANA CORTEZ Room: [facility]#: [id number] Admission: 01/04/20 Attend Phys: Discharge: 01/04/20 Date of : 47 Date of Service: 01/04/20 1658 Report #: [id number] THIS REPORT FOR: //name// [facility] ED Test Date: 2020-01-04 Test Time: 16:58:13 Pat Name: YOVANA CORTEZ Department: Room: Gender: Ocular Pathologist: [facility] : 1945 Requested By: Lisa aSlomon Order Number: [id number] MD: Kenneth Martinez Measurements Intervals [place] Rate: 60 P: SD: QRS: -25 QRSD: 86 T: -59 QT: 556 QTc: 556 Interpretive Statements Sinus rhythm with first-degree AV block Inferior infarct, old Prolonged QT interval Compared to ECG 01/02/2020 10:57:43 Myocardial infarct finding now present Prolonged QT interval now present Right bundle-branch block no longer present ST (T wave) deviation no longer present Possible ischemia no longer present Electronically Signed On 01-06-2020 14:40:56 CDT by Kenneth Martinez [email or web address] <ELECTRONICALLY SIGNED> By: Kenneth Martinez MD, [facility] 01/06/20 1440 1658 1658 Kenneth Martinez MD, [facility] /EPI
== END 2020-01-04 22:16 | disposition short-term general hospital (02) ==
LOC: M.ERS 15:46
PROVIDERS: Personal Emergency Response Attendant; Physician Assistant
DX: J90 Pleural effusion, not elsewhere classified (principal); D72.829 Elevated white blood cell count, unspecified; R06.00 Dyspnea, unspecified; I10 Essential (primary) hypertension; I48.91 Unspecified atrial fibrillation; E11.9 Type 2 diabetes mellitus without complications; E78.5 Hyperlipidemia, unspecified; J45.909 Unspecified asthma, uncomplicated; J44.9 Chronic obstructive pulmonary disease, unspecified; G47.30 Sleep apnea, unspecified; Z90.49 Acquired absence of other specified parts of digestive tract; Z90.710 Acquired absence of both cervix and uterus; Z91.048 Other nonmedicinal substance allergy status; Z88.1 Allergy status to other antibiotic agents; Z88.6 Allergy status to analgesic agent; Z88.8 Allergy status to other drugs, medicaments and biological substances

== ENCOUNTER → 2020-01-21 | Outpatient (CLI) | payer MEDICARE ==
[2020-01-21 11:55] LABS: ABSOLUTE EOSINOPHILS 0.5 thou/uL (0.0-0.7); ABSOLUTE LYMPHOCYTES 1.5 thou/uL (0.8-5.3); ABSOLUTE MONOCYTES 0.9 thou/uL (0.0-1.2); BASOPHILS 0.3 %; EOSINOPHILS 4.7 %; HEMATOCRIT 28.3 % (37.0-47.0); HEMOGLOBIN 9.5 gm/dL (12.0-15.0); LYMPHOCYTES 13.4 %; MCHC 33.6 g/dL (28.0-37.0); MCV 83.4 fL (80.0-100.0); MONOCYTES 8.6 %; NUCLEATED RBCS 0 /100WBC; PLATELET COUNT* 672 thou/uL (150-400); RBC 3.39 mil/uL (4.20-5.00); RDW-CV 16.8 % (10.5-14.5)
[2020-01-21 12:16] LABS: ALBUMIN 2.1 g/dL (3.4-5.0); CREATININE 1.1 mg/dL (0.6-1.3); MAGNESIUM 1.9 mg/dL (1.8-2.4); POTASSIUM 3.6 mmol/L (3.5-5.1); TOTAL BILIRUBIN 0.3 mg/dL (<0.1-1.0); TOTAL PROTEIN 6.2 g/dL (6.4-8.2)
== END ==
LOC: M.LAB 11:25
DX: S37.019A Minor contusion of unspecified kidney, initial encounter (principal); I25.10 Atherosclerotic heart disease of native coronary artery without angina pectoris; I50.33 Acute on chronic diastolic (congestive) heart failure; J44.9 Chronic obstructive pulmonary disease, unspecified; Z71.9 Counseling, unspecified; R53.81 Other malaise; J90 Pleural effusion, not elsewhere classified; A39 Meningococcal infection; N17.9 Acute kidney failure, unspecified; I10 Essential (primary) hypertension; G47.33 Obstructive sleep apnea (adult) (pediatric); I70.1 Atherosclerosis of renal artery; A41.9 Sepsis, unspecified organism; I48.0 Paroxysmal atrial fibrillation; E78.2 Mixed hyperlipidemia; E11.9 Type 2 diabetes mellitus without complications; E66.9 Obesity, unspecified; I65.23 Occlusion and stenosis of bilateral carotid arteries; D64.9 Anemia, unspecified; Z95.5 Presence of coronary angioplasty implant and graft; Z99.89 Dependence on other enabling machines and devices; Z79.4 Long term (current) use of insulin; Z98.890 Other specified postprocedural states; X58.XXXA Exposure to other specified factors, initial encounter; Y93.89 Activity, other specified; Y92.89 Other specified places as the place of occurrence of the external cause; Y99.8 Other external cause status

== ENCOUNTER → 2020-04-14 | Outpatient (CLI) | payer MEDICARE ==
[2020-04-14 11:26] LABS: CREATININE 1.3 mg/dL (0.6-1.3)
== END ==
LOC: M.LAB 10:37
PROVIDERS: ATTEND Internal Medicine Infectious Disease
DX: J86.9 Pyothorax without fistula (principal)

== ENCOUNTER → 2020-04-29 | Outpatient (CLI) | payer MEDICARE ==
[2020-04-29 15:29] LABS: CREATININE 1.5 mg/dL (0.6-1.3)
== END ==
LOC: M.RAD 14:47
PROVIDERS: ATTEND Internal Medicine Infectious Disease
DX: Z12.31 Encounter for screening mammogram for malignant neoplasm of breast (principal); N17.9 Acute kidney failure, unspecified; N64.89 Other specified disorders of breast